=== PATIENT | female | born 1950 | race Caucasian/White ===

== ENCOUNTER → 2016-07-08 | Outpatient (CLI) | payer BC ==
[~2016-07-08] MED LIST: ALBU1.25 IH; ALLO100T PO; AMLO10TA2 PO; BUDE10.2 IH; CHLO25TA22 PO; ESCI20TA45 PO; GABA-488 PO; HYDR-3812 PO; INSU100I10 SQ; INSU100V6 SQ; LOSA50TA36 PO; MELO7.5T46 PO; METF1000 PO; POTA10CA43 PO; SIMV10TA3 PO; TRAM50TA2 PO
--- NOTE | 2016-07-08 13:24 | Diagnostic Imaging Report ---
EXAMINATION: Right breast diagnostic mammogram with a Computer Aided Detection (CAD) system. INDICATION: Calcifications were seen on mammography in the upper outer aspect of the right breast on the 04/11/2016 exam performed at an outside facility with question of architectural distortion in the retroareolar region on the right MLO view. COMPARISON: 04/11/2016 and other prior exams. FINDINGS: The right breast parenchyma is composed of slightly dense fibroglandular tissue in the retroareolar region with scattered fibroglandular tissue elsewhere. There are benign-appearing calcifications seen in the upper outer aspect including vascular calcifications. In the MLO projection, a compression view demonstrates no underlying lesion. IMPRESSION: The new calcifications described on the prior report and the questioned architectural distortion in the retroareolar area were investigated with focal compression views in the areas of interest demonstrating no suspicious cluster of calcifications or underlying lesion. The ultrasound evaluation is pending. ACR BI-RADS Category 0: Incomplete. (Needs additional imaging evaluation). Result letter will be mailed to the patient. Note: At least 10% of breast cancer is not imaged by mammography. Dictated by: Dictated on workstation # [id number]
--- NOTE | 2016-07-08 13:50 | Diagnostic Imaging Report ---
EXAMINATION: Right breast ultrasound INDICATION: Calcifications and question of architectural distortion in the right breast retroareolar and upper outer quadrant. FINDINGS: The four-quadrant of retroareolar region of the right breast are scanned with no underlying abnormality seen. IMPRESSION: Negative study. The calcifications seen on mammogram is likely benign. A 6 month followup mammogram is recommended to ensure stability. BI-RADS 3. ACR BI-RADS Category 3: Probably benign findings. Dictated by: Dictated on workstation # [id number]
== END ==
LOC: RAD 12:27
PROVIDERS: ATTEND Physician Assistant Medical
DX: R92.8 Other abnormal and inconclusive findings on diagnostic imaging of breast (principal); Z80.3 Family history of malignant neoplasm of breast
CPT/HCPCS: 76641

== ENCOUNTER 2018-05-07 05:38 | Outpatient (CLI) | payer BC, MEDICARE ==
[~2018-05-07] VITALS: Ht 171.4 cm; Wt 104.1 kg
[~2018-05-07 05:38] MED LIST changes: +ACHD5005 PO; -AMLO10TA2 PO; +AMLO10TA7 PO; -HYDR-3812 PO; -LOSA50TA36 PO; +LOSA50TA63 PO; +METF-399 PO; -METF1000 PO
== END 2018-05-07 10:13 ==
LOC: PREOP 05:38
PROVIDERS: ATTEND Surgery
DX: Z01.818 Encounter for other preprocedural examination (principal)

== ENCOUNTER 2018-05-11 08:38 | Day surgery (SDC) | payer MEDICARE, OTHER ==
[~2018-05-11] VITALS: Ht 171.4 cm; Wt 104.1 kg
--- OUTSIDE RECORDS SUMMARY | 2018-05-11 08:42 | XMS REPORT ---
Author Author TIP RIVERA Organization [employer] Address Unknown Phone Unavailable Care Team Providers Care Business Travel Consultant Name Role Phone TIP RIVERA CP Unavailable Allergies No Known Allergies Problems Problem Type Condition Code Onset Dates Condition Status Problem Emphysema of lung 492.8 Active Problem Lumbago 724.2 Active Problem DM (diabetes mellitus), type 2, uncontrolled 250.02 Active Problem Essential hypertension, benign 401.1 Active Problem Asthma, unspecified, unspecified status 493.90 Active Medications No Known Medications Results No Known Results Summary Purpose [employer] Submission
--- OUTSIDE RECORDS SUMMARY | 2018-05-11 08:42 | XMS REPORT ---
Author Author TIP RIVERA Organization [employer] Address Unknown Phone Unavailable Care Team Providers Care Superintendent Sanitation Name Role Phone TIP RIVERA CP Unavailable Allergies No Known Allergies Problems Problem Type Condition Code Onset Dates Condition Status Problem Emphysema of lung 492.8 Active Problem Lumbago 724.2 Active Problem DM (diabetes mellitus), type 2, uncontrolled 250.02 Active Problem Essential hypertension, benign 401.1 Active Problem Asthma, unspecified, unspecified status 493.90 Active Medications Medication Code System Code Instructions Start Date End Date Status Dosage Test strips NDC 0 Test Strips 2 times a day August 09, 2014 as directed Results No Known Results Summary Purpose [employer] Submission
[2018-05-11] MEDS ORDERED: NS IV 500 ML 500 ML IV PRN (08:48)
[2018-05-11] MEDS ORDERED: NS IV 500 ML 500 ML ONE (08:50)
[2018-05-11] MEDS ORDERED: fentaNYL INJECTION 100 MCG/2 ML AMP IVP ONE (09:00)
[2018-05-11] MEDS ORDERED: MIDAZOLAM 2 MG/2 ML (VERSED) VIAL IVP ONE (09:00)
[2018-05-11 09:19] VITALS: BP 155/88
--- NOTE | 2018-05-11 10:14 | History & Physicial ---
History of Present Illness History of Present Illness Reason for visit/HPI for surveillance colonoscopy. 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 Date of Admission 05/11/18 Date Seen by a Provider: May 11, 2018 Time Seen by a Provider: 10:12 I consulted on this patient on 05/11/18 10:10 Attending Physician Nila Christianson MD Admitting Physician Andrade Shaw MD Consult Allergies and Home Medications Allergies Coded Allergies: Penicillins (Verified Allergy, Mild, RASH, 05/07/18) Home Medications Albuterol Sulfate 1.25 Mg/3 Ml Vial.neb, 1.25 MG IH Q8H PRN for SHORTNESS OF BREATH, (Reported) Allopurinol 100 Mg Tablet, 100 MG PO DAILY, (Reported) Amlodipine Besylate 10 Mg Tablet, 10 MG PO DAILY, (Reported) Budesonide/Formoterol Fumarate 10.2 Gm Hfa.aer.ad, 2 PUFF IH BID PRN for SHORTNESS OF BREATH, (Reported) Escitalopram Oxalate 20 Mg Tablet, 20 MG PO DAILY, (Reported) Gabapentin 300 Mg Capsule, 300 MG PO TID, (Reported) Insulin Glargine,Hum.rec.anlog 100 Unit/1 Ml Insuln.pen, 10 UNITS SQ DAILY@1800, (Reported) Losartan Potassium 50 Mg Tablet, 50 MG PO DAILY, (Reported) Metformin HCl 1,000 Mg Tablet, 1,000 MG PO BID, (Reported) LAST FILLED 11/22/15 #60 Potassium Chloride 10 Meq Capsule.er, 10 MEQ PO BID, (Reported) Simvastatin 10 Mg Tablet, 10 MG PO HS, (Reported) Patient Home Medication List Home Medication List Reviewed: Yes Past Hrlyagp-Vjmaop-Iotqgk Hx Patient Social History Marrital Status: single Employed/Student: retired Alcohol Use: Denies Use Recreational Drug Use: No Former Smoker, Quit: Jan 10, 2006 Type Used: Cigarettes 2nd Hand Smoke Exposure: Yes Recent Foreign Travel: No Contact w/other who traveled: No Recent Hopitalizations: No Immunizations Up To Date Tetanus Booster (TDap): Unknown Date of Pneumonia Vaccine: Mar 24, 2017 Date of Influenza Vaccine: Dec 22, 2017 Seasonal Allergies Seasonal Allergies: Yes Surgeries Yes (POLYPS, HIATAL HERNIA REPAIR, R TKR, COLECTOMY) Appendectomy Respiratory Yes Cardiovascular Yes High Cholesterol, Hypertension Neurological Yes Neuropathy Reproductive System Hx Reproductive Disorders: No Sexually Transmitted Disease: No HIV/AIDS: No Genitourinary No Gastrointestinal Yes Gastroesophageal Reflux, Chronic Constipation, Chronic Diarrhea, Polyps Musculoskeletal Yes Degenerate Disk Disease, Arthritis, Chronic Back Pain Endocrine History of Endocrine Disorders: Yes Endocrine Disorders: Diabetes, Insulin dep HEENT History of HEENT Disorders: Yes (GLASSES, DENTURES) Loss of Vision: Bilateral Hearing Impairment: Denies Cancer Yes Colon Did You Recieve Any Treatments: Yes Type of Treatment: Surgical Intervention Psychosocial History of Psychiatric Problem: Yes Behavioral Health Disorders: Depression Integumentary History of Skin or Integumenta: No Blood Transfusions History of Blood Disorders: No Adverse Reaction to a Blood Tr: No (N/A) Family Medical History Family Hx: BONE CANCER 19 FATHER BRAIN ANEURYSM 19 MOTHER Review of Systems Constitutional: no symptoms reported EENTM: no symptoms reported Respiratory: no symptoms reported Cardiovascular: no symptoms reported Gastrointestinal: diarrhea Genitourinary: no symptoms reported Musculoskeletal: no symptoms reported Skin: no symptoms reported Psychiatric/Neurological: No Symptoms Reported Physical Exam Vital Signs Vital Signs - First Documented 05/11/18 09:19 Temp 99.5 Pulse 85 Resp 20 B/P (MAP) 155/88 (110) Pulse Ox 94 O2 Delivery Room Air Capillary Refill : Height, Weight, BMI Height: 5'7.50" Weight: 229lbs. 8.0oz. 104.330687pp; 35.4 BMI Method: General Appearance: No Apparent Distress Neck: Normal Inspection Respiratory: Lungs Clear Cardiovascular: Regular Rate, Rhythm Gastrointestinal: Non Tender, Soft Rectal: Deferred Neurologic/Psychiatric: Alert, Oriented x3 Skin: Warm/Dry Assessment/Plan Assessment and Plan lady with a large polyp of the right colon with high-grade dysplasia, previous right colon resection. For surveillance colonoscopy Admission Diagnosis Admission Status: Other (Outpt Proc) NILA CHRISTIANSON MD May 11, 2018 10:14
--- NOTE | 2018-05-11 10:14 | Conscious Sedation/ASA ---
Conscious Sedation Pre-Proced Time 10:14 ASA Score 2 For ASA 3 and 4: Consider anesthesia and medical clearance. Also, for patients with a history of failed moderate sedation consider anesthesia. Airway Lungs Heart ASA score ASA 1: a normal healthy patient ASA 2: a patient with a mild systemic disease (mid diabetes, controlled hypertension, obesity ASA 3: a patient with a severe systemic disease that limits activity (angina , COPD, prior Myocardial infarction) ASA 4: a patient with an incapacitating disease that is a constant threat to life (CHF, renal failure) ASA 5: a moribund patient not expected to survive 24 hrs. (ruptured aneurysm) ASA 6: a declared brain- patient whose organs are being harvested. For emergent operations, add the letter E after the classification Mallampati Classification Grade 1 Sedation Plan Discussed options with patient/fam The patient is an appropriate candidate to undergo the planned procedure, sedation, and anesthesia. The patient immediately re-assessed prior to indication. NILA CHRISTIANSON MD May 11, 2018 10:14
[2018-05-11] MEDS ORDERED: fentaNYL INJECTION 100 MCG/2 ML AMP ONE (10:22)
[2018-05-11] MEDS ORDERED: MIDAZOLAM 2 MG/2 ML (VERSED) VIAL ONE ×3 (10:23)
--- NOTE | 2018-05-11 10:59 | Endo Procedure Record ---
Endo Procedure Report Date of Procedure Last Colonoscopy: Yes (2016) May 11, 2018 Surgeon (s) NILA CHRISTIANSON MD Post Procedure/Op Diagnosis normal colonoscopy Procedure Performed colonoscopy to ileocolic anastomosis Description of Procedure Anesthesia Type: Conscious Sedation Specimen(s) collected/removed None Description of the Procedure Indication for the procedure: This lady had undergone right hemicolectomy using robotic assistance to address a serrated adenoma of the right colon with high- grade dysplasia. She came in for surveillance colonoscopy. Informed consent was obtained after reviewing the procedure in detail. Description of the procedure: She was placed in left lateral decubitus position and her vital signs were monitored. Conscious sedation was achieved using Versed and fentanyl. Digital rectal examination was unremarkable. The colonoscope was then introduced in the rectum and advanced to the ileocolic anastomosis. It was then withdrawn slowly and the mucosa examined in a systematic fashion. There was no abnormality. She tolerated the procedure well and was taken to the recovery room in a stable condition. Impression: Previous serrated adenoma of the right colon with high-grade dysplasia. No recurrence. Recommend repeating colonoscopy in 3 years. NILA CHRISTIANSON MD May 11, 2018 10:59
[2018-05-11 11:00] VITALS: BP 135/57
--- NOTE | 2018-05-11 11:04 | Discharge Inst-Simple/Standard ---
Discharge Inst-Standard Discharge Medications New, Converted or Re-Newed RX: Other Patient Instructions/Follow Up Plan of Care/Instructions/FU: repeat colonoscopy in 3 years. To use jeic-bpy-qpobwbu antidiarrheals Activity as Tolerated: Yes Discharge Diet: No Restrictions NILA CHRISTIANSON MD May 11, 2018 11:04
[2018-05-11 11:30] VITALS: BP 138/68
[2018-05-11 11:50] VITALS: BP 138/68
== END 2018-05-11 11:50 | disposition home or self-care (01) ==
LOC: ENDO 08:38
PROVIDERS: ATTEND Surgery
DX: Z12.11 Encounter for screening for malignant neoplasm of colon (principal); Z86.010 Personal history of colon polyps; Z88.0 Allergy status to penicillin; Z79.899 Other long term (current) drug therapy; Z79.4 Long term (current) use of insulin; Z87.891 Personal history of nicotine dependence; I10 Essential (primary) hypertension; E78.00 Pure hypercholesterolemia, unspecified; E11.40 Type 2 diabetes mellitus with diabetic neuropathy, unspecified; K21.9 Gastro-esophageal reflux disease without esophagitis; K59.09 Other constipation; K52.9 Noninfective gastroenteritis and colitis, unspecified; M19.91 Primary osteoarthritis, unspecified site

== ENCOUNTER → 2020-08-08 | Outpatient (CLI) | payer MEDICARE, OTHER ==
[~2020-08-08] MED LIST changes: +AMLO-251 PO; -AMLO10TA7 PO; +ESCI20TA39 PO; -ESCI20TA45 PO; +SIMV10TA26 PO; -SIMV10TA3 PO; -TRAM50TA2 PO; +TRM50T PO
--- NOTE | 2020-08-08 13:00 | Diagnostic Imaging Report ---
INDICATION: Routine screening. Comparison is made with prior mammogram 04/11/2016 and 09/19/2009. 2-D and 3-D bilateral screening mammography was performed with CAD. Scattered fibroglandular densities are identified bilaterally. The overall parenchymal pattern appears to be stable. There are benign parenchymal and vascular calcifications. No mass or malignant appearing microcalcifications are seen. Axillae are unremarkable. IMPRESSION: BI-RADS Category 2 No mammographic features suspicious for malignancy are identified. Dictated by: Dictated on workstation # [id number]
== END ==
LOC: RAD 11:15
PROVIDERS: ATTEND Nurse Practitioner Community Health
DX: Z12.31 Encounter for screening mammogram for malignant neoplasm of breast (principal)
CPT/HCPCS: 77063; 77067

== ENCOUNTER 2020-09-19 06:36 | Outpatient (CLI) | payer MEDICARE ==
[~2020-09-19] VITALS: Ht 170.2 cm; Wt 107.2 kg
[2020-09-19] MEDS ORDERED: HYDR12.56 PO (11:40)
[2020-09-19] MEDS ORDERED: POLY17PO54 PO (11:40)
[2020-09-19] MEDS ORDERED: FLUT1BLS3 IH (11:40)
[2020-09-19] MEDS ORDERED: FURO20TA4 PO (11:40)
[2020-09-19] MEDS ORDERED: NAPR500T8 PO (11:40)
[2020-09-19] MEDS ORDERED: OMEP40CA6 PO (11:40)
[2020-09-19] MEDS ORDERED: INSU100I14 SQ (11:40)
[2020-09-19] MEDS ORDERED: SEMA0.25 SQ (11:40)
[2020-09-19] MEDS ORDERED: ARIP10TA55 PO (11:40)
[2020-09-19] MEDS ORDERED: IPRA3AMP31 IH (11:40)
[2020-09-19] MEDS ORDERED: FLUC100T6 PO (11:40)
[2020-09-19] MEDS ORDERED: QUET200T29 PO (11:40)
[2020-09-19] MEDS ORDERED: CYCL5TAB PO (11:40)
[2020-09-19] MEDS ORDERED: DULO60CA59 PO (11:40)
[2020-09-19] MEDS ORDERED: BUSP5TAB59 PO (11:40)
[2020-09-19] MEDS ORDERED: OXYB-52 PO (11:40)
[2020-09-19] MEDS ORDERED: NITR100C10 PO (11:40)
[2020-09-19] MEDS ORDERED: DAPA5TAB PO (11:40)
== END 2020-09-19 14:07 | disposition home or self-care (01) ==
LOC: PREOP 06:36
PROVIDERS: ATTEND Surgery
DX: Z01.818 Encounter for other preprocedural examination (principal)

== ENCOUNTER 2020-09-26 07:00 | Day surgery (SDC) | payer MEDICARE, MEDICAID ==
[~2020-09-26] VITALS: Ht 170.2 cm; Wt 107.2 kg
[~2020-09-26 07:00] MED LIST changes: +ARIP10TA55 PO; +BUSP5TAB59 PO; +CYCL5TAB PO; +DAPA5TAB PO; +DULO60CA59 PO; +FLUC100T6 PO; +FLUT1BLS3 IH; +FURO20TA4 PO; +HYDR12.56 PO; +INSU100I14 SQ; +IPRA3AMP31 IH; +NAPR500T8 PO; +NITR100C10 PO; +OMEP40CA6 PO; +OXYB-52 PO; +POLY17PO54 PO; +QUET200T29 PO; +SEMA0.25 SQ
[2020-09-26] MEDS ORDERED: LACTATED RINGERS 1,000 ML IV STA (07:11)
[2020-09-26] MEDS ORDERED: LACTATED RINGERS 1,000 ML IV ONE (07:14)
[2020-09-26 07:25] VITALS: BP 140/94
[2020-09-26] MEDS ORDERED: RT-ALBUTEROL SULF 2.5 MG/3 ML PRE-MIX VIAL INH ONE (07:45)
[2020-09-26] MEDS ORDERED: PROPOFOL INJECTION 50 ML IV ONE ×2 (07:46→09:50)
[2020-09-26 10:45] VITALS: BP 130/73
[2020-09-26 10:50] VITALS: BP_SYST 128; BP_SYST 143; BP_DIAS 73; BP_DIAS 76
--- NOTE | 2020-09-26 10:55 | Anesthesia-General Post-Op ---
MAC Patient Condition Mental Status/LOC: Same as Preop Cardiovascular: Satisfactory Nausea/Vomiting: Absent Respiratory: Satisfactory Pain: Controlled Complications: Absent Post Op Complications Complications None Follow Up Care/Instructions Patient Instructions None needed. Anesthesiology Discharge Order Discharge Order Patient is doing well, no complaints, stable vital signs, no apparent adverse anesthesia problems. No complications reported per nursing. MARKUS TERRY CRNA Sep 26, 2020 10:55
--- NOTE | 2020-09-26 11:02 | Progress Note-Post Operative ---
Post-Operative Progess Note Surgeon (s)/Order Runner (s) Surgeon YORDAN MORRISSEY DO Order Runner: na Pre-Operative Diagnosis hx colon cancer Post-Operative Diagnosis ileocolonic mass, colon polyps Procedure & Operative Findings Date of Procedure 09/26/20 Procedure Performed/Findings colonoscopy c cold biopsies of ileocolonic mass, madhav inked, hot bx p olypectomy x 3 Anesthesia Type per insecticide supervisor Estimated Blood Loss Estimated blood loss (mL): scant Specimens/Packing Specimens Removed iloeocolonic mass, colon polyps YORDAN MORRISSEY DO Sep 26, 2020 11:02
--- NOTE | 2020-09-26 11:02 | Discharge Inst-Simple/Standard ---
Discharge Inst-Standard Patient Instructions/Follow Up Plan of Care/Instructions/FU: 2 weeks Leonela Activity as Tolerated: Yes Discharge Diet: Regular Diet YORDAN MORRISSEY DO Sep 26, 2020 11:02
[2020-09-26 11:15] VITALS: BP 116/86
[2020-09-26 11:16] VITALS: BP 116/86
--- NOTE | 2020-09-26 15:20 | OPERATIVE REPORT ---
DATE OF SERVICE: 09/26/2020 PREOPERATIVE DIAGNOSIS: History of colon cancer. POSTOPERATIVE DIAGNOSES: Ileocolonic masses and colon polyps. PROCEDURES PERFORMED: Colonoscopy with cold biopsies of ileocolic mass with Swati inking just distal to this area and hot biopsy polypectomy x3. SURGEON: Yordan Gipson DO. ANESTHESIA: Per EMPLOYMENT CLERK. ESTIMATED BLOOD LOSS: Scant. COMPLICATIONS: None. INDICATIONS FOR PROCEDURE: The patient is a 70-year-old female with a previous right colon resection for colon cancer. She understands risks and benefits of the procedure and wished to proceed with procedure. Consent was signed in the chart. DESCRIPTION OF PROCEDURE: The patient was taken to the endoscopy suite and placed in a left lateral recumbent position. Timeout was performed. Digital rectal exam was performed. There were no palpable polyps, masses or ulcerations. Scope was inserted in the rectum and advanced all the way to the ileocolonic anastomosis. Just distal to the ileocolonic anastomosis, there appears to be a slight diverticulum with a mass present within this area. Multiple cold biopsies were obtained of this area. Just distal to this area, a 3 mL of Swati ink were injected one in three locations for marking. Scope was then continuously retracted back. At the splenic flexure, there were two polyps, which hot biopsy polypectomies were performed. Scope was then continuously retracted back and another small polyp in the sigmoid colon was present, which hot biopsy polypectomy was performed. Scope was then continuously retracted back into the rectum, where it was also retroflexed noting no other pathology. Scope was returned to its normal position, slowly withdrawn until completely removed. The patient tolerated the procedure well without any complications. She was taken to recovery room in stable condition. RECOMMENDATIONS: The patient will follow up on pathology in two weeks. We will consider doing an ileocolonic resection and reanastomosis. Further recommendations are pending. Job ID: [id number] DocumentID: [id number] Dictated Date: 09/26/2020 11:05:43 Desk Monitor Date: 09/26/2020 15:19:59 Dictated By: YORDAN GIPSON DO
== END 2020-09-26 11:18 | disposition home or self-care (01) ==
LOC: ENDO 07:00
PROVIDERS: ATTEND Surgery
DX: Z12.11 Encounter for screening for malignant neoplasm of colon (principal); D12.2 Benign neoplasm of ascending colon; D12.3 Benign neoplasm of transverse colon; I10 Essential (primary) hypertension; K21.9 Gastro-esophageal reflux disease without esophagitis; E66.9 Obesity, unspecified; F32.9 Major depressive disorder, single episode, unspecified; F41.9 Anxiety disorder, unspecified; E11.40 Type 2 diabetes mellitus with diabetic neuropathy, unspecified; E78.00 Pure hypercholesterolemia, unspecified; E78.5 Hyperlipidemia, unspecified; J43.9 Emphysema, unspecified; G89.29 Other chronic pain; Z79.02 Long term (current) use of antithrombotics/antiplatelets; Z85.038 Personal history of other malignant neoplasm of large intestine; Z79.899 Other long term (current) drug therapy; Z79.82 Long term (current) use of aspirin; Z87.891 Personal history of nicotine dependence; Z68.37 Body mass index [BMI] 37.0-37.9, adult; Z90.49 Acquired absence of other specified parts of digestive tract; Z79.1 Long term (current) use of non-steroidal anti-inflammatories (NSAID); Z79.4 Long term (current) use of insulin; Z86.010 Personal history of colon polyps
CPT/HCPCS: 82947; 94640

== ENCOUNTER 2020-10-04 11:30 | Day surgery (SDC) | payer MEDICARE, MEDICAID ==
[~2020-10-04] VITALS: Ht 170 cm; Wt 107.0 kg
--- NOTE | 2020-10-04 11:46 | ED GI ---
General Chief Complaint: Rect Problems Stated Complaint: BLOODY STOOLS Source of Information: Patient Exam Limitations: No Limitations History of Present Illness Date Seen by Provider: Oct 04, 2020 Time Seen by Provider: 11:32 Initial Comments Patient to the ER by EMS from home with chief complaint of 12 hours of black tarry stools lightheadedness and low blood pressure on her home cuff. EMS reports 78/50 on their initial blood pressure. They started a 500 bag of saline. Patient had a colonoscopy a week ago and had a couple polyps removed. She has a history of colon cancer. Black tarry stools did not start till about 12 hours ago. Allergies and Home Medications Allergies Coded Allergies: Penicillins (Verified Allergy, Mild, RASH, 05/07/18) Home Medications Albuterol Sulfate 2.5 Mg/3 Ml Vial.neb, 2.5 ML NEB TID, (Reported) Last Action: Reviewed Allopurinol 100 Mg Tablet, 100 MG PO DAILY, (Reported) Last Action: Reviewed Amlodipine Besylate 10 Mg Tablet, 10 MG PO DAILY, (Reported) Last Action: Reviewed Ascorbate Calcium 500 Mg Tablet, 500 MG PO DAILY, (Reported) Last Action: Reviewed Aspirin 81 Mg Tablet.dr, 81 MG PO DAILY, (Reported) Last Action: Reviewed Atorvastatin Calcium 40 Mg Tablet, 40 MG PO HS, (Reported) Last Action: Reviewed Buspirone HCl 5 Mg Tablet, 5 MG PO TID, (Reported) Last Action: Reviewed Cyclobenzaprine HCl 5 Mg Tablet, 5 MG PO TID PRN for MUSCLE SPASMS, (Reported) Last Action: Reviewed Dapagliflozin Propanediol 5 Mg Tablet, 5 MG PO DAILY, (Reported) Last Action: Reviewed Diclofenac Sodium 100 Gm Gel..gram., 1 APPLIC TOP BID PRN for PAIN-BREAKTHROUGH, (Reported) Last Action: Reviewed Duloxetine HCl 30 Mg Capsule.dr, 60 MG PO DAILY, (Reported) TAKES 2 (30MG) CAPS Last Action: Reviewed Gabapentin 300 Mg Capsule, 600 MG PO TID, (Reported) TAKES 2 (300MG) CAPS Last Action: Reviewed Hydrochlorothiazide 12.5 Mg Tablet, 12.5 MG PO DAILY, (Reported) Last Action: Reviewed Insulin Glargine,Hum.rec.anlog 100 Unit/1 Ml Insuln.pen, 10 UNITS SQ HS, (Reported) Last Action: Reviewed Losartan Potassium 50 Mg Tablet, 50 MG PO DAILY, (Reported) Last Action: Reviewed Metformin HCl 1,000 Mg Tablet, 1,000 MG PO BID, (Reported) Last Action: Reviewed Methyl Salicylate/Menthol 1 Each Adh..patch, 1 EACH TP BID, (Reported) Last Action: Reviewed Naproxen 500 Mg Tablet, 500 MG PO DAILY PRN for PAIN-MILD (1-4), (Reported) Last Action: Reviewed Omeprazole 40 Mg Capsule.dr, 40 MG PO DAILY, (Reported) Last Action: Reviewed Oxybutynin Chloride 5 Mg Tab.er.24, 5 MG PO DAILY, (Reported) Last Action: Reviewed Polyethylene Glycol 3350 17 Gm Powd.pack, 17 GM PO DAILY, (Reported) Last Action: Reviewed Polyethylene Glycol 400 15 Ml Drops, 2 DROPS OU QID PRN for DRY EYES, (Reported) Last Action: Reviewed Potassium Chloride 10 Meq Capsule.er, 10 MEQ PO BID, (Reported) Last Action: Reviewed Quetiapine Fumarate 100 Mg Tablet, 100 MG PO HS, (Reported) Last Action: Reviewed Semaglutide 1 Mg/0.75 Ml Pen.injctr, 1 MG INJ FRI, (Reported) Last Action: Reviewed Sennosides 8.6 Mg Tablet, 17.2 MG PO HS PRN for CONSTIPATION-5TH LINE, (Reported) TAKES 2 (8.6MG) TABS Last Action: Reviewed Trazodone HCl 50 Mg Tablet, 50 MG PO HS, (Reported) Last Action: Reviewed Patient Home Medication List Home Medication List Reviewed: Yes Review of Systems Review of Systems Constitutional: No chills, No diaphoresis EENTM: No Blurred Vision, No Double Vision Respiratory: Denies Cough, Denies Orthopnea Gastrointestinal: Denies Abdominal Pain, Denies Constipated, Denies Diarrhea Genitourinary: Denies Burning, Denies Discharge Musculoskeletal: No back pain, No joint pain Psychiatric/Neurological: Denies Headache, Denies Numbness All Other Systems Reviewed Negative Unless Noted: Yes Past Dtldmjz-Tdwrhz-Dhdibn Hx Patient Social History Tobacco Use?: No Use of E-Cig and/or Vaping dev: No Substance use?: No Immunizations Up To Date Tetanus Booster (TDap): Unknown Seasonal Allergies Seasonal Allergies: Yes Past Medical History Surgeries: Yes (POLYPS, HIATAL HERNIA REPAIR, R TKR, COLECTOMY) Appendectomy Respiratory: Yes COPD, Emphysema Cardiac: Yes High Cholesterol, Hypertension Neurological: Yes Neuropathy Reproductive Disorders: No Sexually Transmitted Disease: No HIV/AIDS: No Genitourinary: No Gastrointestinal: Yes Gastroesophageal Reflux, Chronic Constipation, Chronic Diarrhea, Polyps Musculoskeletal: Yes Degenerate Disk Disease, Arthritis, Chronic Back Pain Endocrine: Yes Diabetes, Insulin dep HEENT: Yes (GLASSES, DENTURES) Loss of Vision: Bilateral Hearing Impairment: Denies Cancer: Yes Colon Did You Recieve Any Treatments: Yes What Type of Treatment Did You: Surgical Intervention Psychosocial: Yes Anxiety, Depression Integumentary: No Blood Disorders: No Adverse Reaction/Blood Tranf: No (N/A) Family Medical History BONE CANCER 19 FATHER BRAIN ANEURYSM 19 MOTHER Physical Exam Vital Signs Vital Signs - First Documented 10/04/20 11:39 Temp 36.9 Pulse 93 Resp 18 B/P (MAP) 80/53 (62) Pulse Ox 97 Capillary Refill : Height/Weight/BMI Height: 5'7.50" Weight: 229lbs. 8.0oz. [id number]; 37.00 BMI Method: General Appearance: WD/WN, moderate distress HEENT: PERRL/EOMI, pharynx normal Neck: full range of motion, normal inspection Respiratory: lungs clear, normal breath sounds, no respiratory distress, no accessory muscle use Cardiovascular: normal peripheral pulses, regular rate, rhythm Gastrointestinal: normal bowel sounds, non tender, soft Neurologic/Psychiatric: alert, normal mood/affect, oriented x 3 Skin: normal color, warm/dry Progress/Results/Core Measures Results/Orders Lab Results Laboratory Tests Test 10/04/20 11:40 Range/Units White Blood Count 15.2 H 4.3-11.0 10^3/uL Red Blood Count 3.55 L 3.80-5.11 10^6/uL Hemoglobin 11.1 L 11.5-16.0 g/dL Hematocrit 35 35-52 % Mean Corpuscular Volume 99 80-99 fL Mean Corpuscular Hemoglobin 31 25-34 pg Mean Corpuscular Hemoglobin Concent 31 L 32-36 g/dL Red Cell Distribution Width 13.3 10.0-14.5 % Platelet Count 300 130-400 10^3/uL Mean Platelet Volume 10.8 9.0-12.2 fL Immature Granulocyte % (Auto) 2 % Neutrophils (%) (Auto) 74 42-75 % Lymphocytes (%) (Auto) 19 12-44 % Monocytes (%) (Auto) 3 0-12 % Eosinophils (%) (Auto) 1 0-10 % Basophils (%) (Auto) 1 0-10 % Neutrophils # (Auto) 11.2 H 1.8-7.8 10^3/uL Lymphocytes # (Auto) 3.0 1.0-4.0 10^3/uL Monocytes # (Auto) 0.5 0.0-1.0 10^3/uL Eosinophils # (Auto) 0.2 0.0-0.3 10^3/uL Basophils # (Auto) 0.2 H 0.0-0.1 10^3/uL Immature Granulocyte # (Auto) 0.3 H 0.0-0.1 10^3/uL Neutrophils % (Manual) 77 % Lymphocytes % (Manual) 20 % Monocytes % (Manual) 1 % Eosinophils % (Manual) 1 % Basophils % (Manual) 0 % Band Neutrophils 1 % Blood Morphology Comment NORMAL Sodium Level 141 135-145 MMOL/L Potassium Level 4.3 3.6-5.0 MMOL/L Chloride Level 103 98-107 MMOL/L Carbon Dioxide Level 22 21-32 MMOL/L Anion Gap 16 H 5-14 MMOL/L Blood Urea Nitrogen 17 7-18 MG/DL Creatinine 0.77 0.60-1.30 MG/DL Estimat Glomerular Filtration Rate > 60 BUN/Creatinine Ratio 22 Glucose Level 176 H 70-105 MG/DL Calcium Level 8.4 L 8.5-10.1 MG/DL Corrected Calcium 8.6 8.5-10.1 MG/DL Total Bilirubin 0.5 0.1-1.0 MG/DL Aspartate Amino Transf (AST/SGOT) 28 5-34 U/L Alanine Aminotransferase (ALT/SGPT) 38 0-55 U/L Alkaline Phosphatase 67 40-136 U/L C-Reactive Protein High Sensitivity 0.87 H 0.00-0.50 MG/DL Total Protein 6.3 L 6.4-8.2 GM/DL Albumin 3.7 3.2-4.5 GM/DL My Orders Orders - ADE COREA Abdomen/Kub 1view (10/04/20 11:42) Type And Screen (10/04/20 11:42) Cbc With Automated Diff (10/04/20 11:42) Comprehensive Metabolic Panel (10/04/20 11:42) Hs C Reactive Protein (10/04/20 11:42) Occult Blood Stool (10/04/20 11:43) Vital Signs: Special (Order) (10/04/20 11:46) Consent-Obtain Consent For (10/04/20 11:46) Monitor S/S Transfusion Reacti (10/04/20 11:46) Ns Iv 500 Ml (Sodium Chloride 0.9%) (10/04/20 12:00) Red Cells Leukocytes Reduced (10/04/20 11:46) Tranexamic Acid Injection (Cyklokapron I (10/04/20 12:00) Ns (Ivpb) (Sodium C... W/Tranexamic Acid (10/04/20 12:00) Pantoprazole Injection (Protonix Injecti (10/04/20 12:00) Manual Differential (10/04/20 11:40) Ns Iv 1000 Ml (Sodium Chloride 0.9%) (10/04/20 12:30) Medications Given in ED Current Medications Medications Dose Ordered Sig/Parmjit Route Start Time Stop Time Status Last Admin Dose Admin Pantoprazole 40 mg ONCE ONCE IV 10/04/20 12:00 10/04/20 12:01 DC 10/04/20 12:40 40 MG Vital Signs/I&O 10/04/20 11:39 Temp 36.9 Pulse 93 Resp 18 B/P (MAP) 80/53 (62) Pulse Ox 97 Progress Progress Note : Time: 12:45 Progress Note Positive fecal occult. Hemoglobin is 11. Her blood pressure has leveled off with some fluids and Trendelenburg. 109/68. We will talk to her about putting a central line in and sending her to the stepdown unit for observation. Holding the blood and the TXA. Diagnostic Imaging Diagonstic Imaging: Xray Plain Films/CT/US/NM/MRI: abdomen, pelvis Comments No apparent free air on KUB. Reviewed: Reviewed by Me Departure Communication (Admissions) Time/Spoke to Admitting Phy: 12:30 Discussed the case with Dr. Gipson and he agrees to observe the patient with consult to medicine. Fluids 125 an hour, H&H at 1800, Protonix drip. Discontinue TXA and hold 2 units. Time/Spoke to Consulting Phy: 12:[address] Ernst and she agrees to consult with Dr. Gipson Impression Primary Impression: GI bleed Qualified Codes: K92.2 - Gastrointestinal hemorrhage, unspecified Disposition: ADMITTED INPATIENT Condition: Stable Admissions Decision to Admit Reason: Admit from ER (General) Decision to Admit/Date: Oct 04, 2020 Time/Decision to Admit Time: 12:30 Departure-Patient Inst. Ref[facility]: [facility] [place] Primary Care Physician DEVYN ARANA (Family) Primary Care Physician ADE COREA Oct 04, 2020 11:46
[2020-10-04 11:51] LABS: BASOPHILS # (AUTO) 0.2 10^3/uL (0.0-0.1); BASOPHILS % (AUTO) 1 % (0-10); EOSINOPHILS # (AUTO) 0.2 10^3/uL (0.0-0.3); EOSINOPHILS % (AUTO) 1 % (0-10); HEMATOCRIT 35 % (35-52); HEMOGLOBIN 11.1 g/dL (11.5-16.0); LYMPHOCYTES % (AUTO) 19 % (12-44); MEAN CORPUSCULAR HEMOGLOBIN 31 pg (25-34); MEAN CORPUSCULAR HGB CONC 31 g/dL (32-36); MEAN CORPUSCULAR VOLUME 99 fL (80-99); MEAN PLATELET VOLUME 10.8 fL (9.0-12.2); MONOCYTES # (AUTO) 0.5 10^3/uL (0.0-1.0); MONOCYTES % (AUTO) 3 % (0-12); NEUTROPHILS # (AUTO) 11.2 10^3/uL (1.8-7.8); NEUTROPHILS % (AUTO) 74 % (42-75); PLATELET COUNT 300 10^3/uL (130-400); WHITE BLOOD COUNT 15.2 10^3/uL (4.3-11.0)
[2020-10-04 12:00] LABS: ALBUMIN 3.7 GM/DL (3.2-4.5); CHLORIDE 103 MMOL/L (98-107); POTASSIUM 4.3 MMOL/L (3.6-5.0); SODIUM 141 MMOL/L (135-145)
[2020-10-04] MEDS ORDERED: TRANEXAMIC ACID INJECTION 1,000 MG in NS (IVPB) 100 ML IV ONE (12:00)
[2020-10-04] MEDS ORDERED: TRANEXAMIC ACID INJECTION 1,000 MG in NS (IVPB) 250 ML IV SCH (12:00)
[2020-10-04] MEDS ORDERED: NS IV 500 ML 500 ML IV SCH (12:00)
[2020-10-04] MEDS ORDERED: PANTOPRAZOLE 40 MG (PROTONIX) VIAL IV ONE (12:00)
[2020-10-04 12:01] LABS: CALCIUM 8.4 MG/DL (8.5-10.1)
[2020-10-04 12:03] LABS: GLUCOSE 176 MG/DL (70-105); TOTAL PROTEIN 6.3 GM/DL (6.4-8.2)
[2020-10-04 12:04] LABS: CARBON DIOXIDE 22 MMOL/L (21-32)
[2020-10-04 12:05] LABS: BILIRUBIN,TOTAL 0.5 MG/DL (0.1-1.0)
[2020-10-04 12:06] LABS: ALKALINE PHOSPHATASE 67 U/L (40-136); CREATININE SERUM 0.77 MG/DL (0.60-1.30); GFR ESTIMATED > 60
[2020-10-04 12:07] LABS: BUN/CREATININE RATIO 22
[2020-10-04 12:09] LABS: ALANINE AMINOTRANSFERASE 38 U/L (0-55)
[2020-10-04] MEDS ORDERED: NS IV 1000 ML 1,000 ML IV SCH (12:30)
[2020-10-04 12:36] LABS: BAND NEUTROPHILS 1 %; BASOPHILS % (MANUAL) 0 %; EOSINOPHILS % (MANUAL) 1 %; LYMPHOCYTES % (MANUAL) 20 %; MONOCYTES % (MANUAL) 1 %; NEUTROPHILS % (MANUAL) 77 %; RBC MORPH NORMAL
--- NOTE | 2020-10-04 12:45 | Diagnostic Imaging Report ---
Indication: Rectal bleeding, anemia FINDINGS: The bowel gas pattern appeared normal. No pneumatosis or evidence for free air. Surgical opacities in the right upper quadrant curvilinear as well as nomi at the epigastrium and left upper quadrant present as well as the right hemipelvis. No bowel obstruction. Impression: No acute appearing abnormality. Dictated by: Dictated on workstation # [id number]
[2020-10-04] MEDS: LACTATED RINGERS 1,000 ML IV SCH ×2 (14:57→22:04)
[2020-10-04] MEDS ORDERED: fentaNYL INJ 100 MCG/2 ML AMP IV PRN (15:00)
[2020-10-04] MEDS ORDERED: CATHETER FLUSH 10 ML SYR IV PRN (15:00)
[2020-10-04] MEDS ORDERED: ONDANSETRON 4 MG/2 ML (SDV) Z0FRAN IV PRN (15:00)
[2020-10-04] MEDS ORDERED: NAPR-915 PO (15:01)
[2020-10-04] MEDS ORDERED: SENN8.6T17 PO (15:01)
[2020-10-04] MEDS ORDERED: DULO30CA49 PO (15:01)
[2020-10-04] MEDS ORDERED: SEMA1PEN INJ (15:01)
[2020-10-04] MEDS ORDERED: ASCO-262 PO (15:01)
[2020-10-04] MEDS ORDERED: QUET100T33 PO (15:01)
[2020-10-04] MEDS ORDERED: METH1ADH15 TP (15:01)
[2020-10-04] MEDS ORDERED: TRZ50T PO (15:01)
[2020-10-04] MEDS ORDERED: ATOR40TA70 PO (15:01)
[2020-10-04] MEDS ORDERED: ASPI-1238 PO (15:01)
[2020-10-04] MEDS ORDERED: ALBU2.5V4 NEB (15:01)
[2020-10-04] MEDS ORDERED: GABA300C PO (15:01)
[2020-10-04] MEDS ORDERED: DICL100G13 TOP (15:01)
[2020-10-04] MEDS ORDERED: [UNRECOGNIZED DRUG - CODE] OU (15:01)
--- NOTE | 2020-10-04 15:01 | Consultation - Hospitalist ---
HPI History of Present Illness: HPI/Chief Complaint CC: GI bleed HPI: This is a [facility] patient who presented to the ER with several days of dark stools and severe dizziness and syncopal episode. She was found to have Hgb of 11, but high suspicion for upper GI bleed. Dr. Gipson will maintain supportive care and perform EGD. I know her from prior hospital stays. She denies any other significant issues. Source: patient Exam Limitations: no limitations Date Seen 10/04/20 Attending Physician Cortes Gipson DO [facility] Referring Physician Date of Admission Oct 04, 2020 at 12:40 Home Medications & Allergies Home Medications Reviewed patient Home Medication Reconciliation performed by pharmacy medication reconciliations agricultural technician and/or nursing. Patients Allergies have been reviewed. Allergies Allergies Coded Allergies Penicillins (Verified Allergy, Mild, RASH, 05/07/18) Past Noueule-Korkfp-Jzjase Hx Patient Social History Marrital Status: single Employed/Student: retired Tobacco Use?: No Tobacco type used: Cigars Smoking Status: Former Smoker Smokeless Tobacco Frequency: Never a User Use of E-Cig and/or Vaping Tyrell: Never a User Substance use?: No Alcohol Use?: No Pt feels they are or have been: No Immunizations Up To Date Date of Influenza Vaccine: Dec 22, 2017 First/Initial COVID19 Vaccinat: 05/18/20 Second COVID19 Vaccination Tavon: 04/17/2019 Tetanus Booster (TDap): Unknown Date of Pneumonia Vaccine: Mar 24, 2017 Seasonal Allergies Seasonal Allergies: Yes Current Status Advance Directives: Yes Advance Directive Location: Copy from prev record Communicates: Verbally Primary Language: Yi Preferred Spoken Language: Yi Is interpretation needed?: No Sensory deficits: Vision impairment Past Medical History Surgeries: Appendectomy COPD, Emphysema High Cholesterol, Hypertension Neuropathy Sexually Transmitted Disease: No HIV/AIDS: No Gastroesophageal Reflux, Chronic Constipation, Chronic Diarrhea, Polyps Degenerate Disk Disease, Arthritis, Chronic Back Pain Diabetes, Insulin dep Loss of Vision: Bilateral Hearing Impairment: Denies Colon Did You Recieve Any Treatments: Yes What Type of Treatment Did You: Surgical Intervention Anxiety, Depression Blood Disorders: No Adverse Reaction/Blood Tranf: No (N/A) Family Medical History BONE CANCER 19 FATHER BRAIN ANEURYSM 19 MOTHER Review of Systems Constitutional: see HPI Gastrointestinal: melena Physical Exam Physical Exam Vital Signs Vital Signs - First Documented 10/04/20 10/04/20 10/04/20 11:39 14:30 16:00 Temp 36.9 Pulse 93 Resp 18 B/P (MAP) 80/53 (62) Pulse Ox 97 O2 Delivery Room Air O2 Flow Rate 1.00 Capillary Refill : Less Than 3 Seconds Height, Weight, BMI Height: 5'7.50" Weight: 229lbs. 8.0oz. 104.419087aw; 37.02 BMI Method: General Appearance: WD/WN, Anxious, Chronically ill, Mild Distress Eyes: Bilateral Eye Normal Inspection, Bilateral Eye PERRL HEENT: PERRL/EOMI, Normal ENT Inspection, Pharynx Normal Neck: Full Range of Motion, Normal Inspection, Non Tender, Supple, Carotid Bruit Respiratory: Chest Non Tender, Lungs Clear, Normal Breath Sounds, No Accessory Muscle Use, No Respiratory Distress Cardiovascular: Regular Rate, Rhythm, No Edema, No Gallop, No JVD, No Murmur, Normal Peripheral Pulses Gastrointestinal: Normal Bowel Sounds, No Organomegaly, No Pulsatile Mass, Non Tender, Soft Back: Normal Inspection, No CVA Tenderness, No Vertebral Tenderness Extremity: Normal Capillary Refill, Normal Inspection, Normal Range of Motion, Non Tender, No Calf Tenderness, No Pedal Edema Neurologic/Psychiatric: Alert, Oriented x3, No Motor/Sensory Deficits, Normal Mood/Affect Skin: Normal Color, Warm/Dry Lymphatic: No Adenopathy Results Results/Procedures Labs Laboratory Tests 10/04/20 11:40 10/04/20 17:50 10/04/20 23:50 10/05/20 04:45 Patient resulted labs reviewed. Assessment/Plan Assessment and Plan Assess & Plan/Chief Complaint Assessment: Upper GI bleed Acute blood loss anemia Diabetes Hypertension Hyperlipidemia Plan: Dr. Gipson for scope Monitor closely for transfusion Diagnosis/Problems Diagnosis/Problems (1) GI bleed Status: Acute Qualifiers: GI bleed type/associated pathology: unspecified gastrointestinal hemorrhage type Qualified Codes: K92.2 - Gastrointestinal hemorrhage, unspecified JESSICA SANTIAGO DO Oct 04, 2020 15:01
[2020-10-04] MEDS: PANTOPRAZOLE DRIP 200 MG/NS 100 ML IV SCH ×2 (15:05)
[2020-10-04 16:00] VITALS: BP 108/70
--- NOTE | 2020-10-04 16:54 | History & Physical-Surgical ---
History of Present Illness History of Present Illness Reason for visit/HPI Chief complaint: Blood in stool. Patient is a 70-year-old female who had colonoscopy last week which she had polyps removed and biopsy performed. Patient states that last night she began having some blood in the stool. She felt weak. She was having dark melodic blood in the stools. She was having a little bit of red she said as well. She was feeling little bit dizziness from time to time. Patient has continued and went to the emergency department for further evaluation. Patient in the emergency department was slightly hypotensive. She was given fluids. She started feeling better. Patient hemoglobin was 11 range. Patient denies any nausea vomiting fever sweats chills shortness of breath or chest pain. patient states she is been taking aspirin as well. Date of Admission Oct 04, 2020 at 12:40 Date Seen by a Provider: Oct 04, 2020 Time Seen by a Provider: 16:53 I consulted on this patient on 10/04/20 16:53 Attending Physician Yordan Gipson DO Admitting Physician [facility] Consult Allergies and Home Medications Allergies Coded Allergies: Penicillins (Verified Allergy, Mild, RASH, 05/07/18) Home Medications Albuterol Sulfate 2.5 Mg/3 Ml Vial.neb, 2.5 ML NEB TID, (Reported) Last Action: Continued Allopurinol 100 Mg Tablet, 100 MG PO DAILY, (Reported) Last Action: Continued Amlodipine Besylate 10 Mg Tablet, 10 MG PO DAILY, (Reported) Last Action: Held Ascorbate Calcium 500 Mg Tablet, 500 MG PO DAILY, (Reported) Last Action: Converted Aspirin 81 Mg Tablet.dr, 81 MG PO DAILY, (Reported) Last Action: Held Atorvastatin Calcium 40 Mg Tablet, 40 MG PO HS, (Reported) Last Action: Held Buspirone HCl 5 Mg Tablet, 5 MG PO TID, (Reported) Last Action: Continued Cyclobenzaprine HCl 5 Mg Tablet, 5 MG PO TID PRN for MUSCLE SPASMS, (Reported) Last Action: Converted Dapagliflozin Propanediol 5 Mg Tablet, 5 MG PO DAILY, (Reported) Last Action: Held Diclofenac Sodium 100 Gm Gel..gram., 1 APPLIC TOP BID PRN for PAIN-BREAKTHROUGH, (Reported) Last Action: Continued Duloxetine HCl 30 Mg Capsule.dr, 60 MG PO DAILY, (Reported) TAKES 2 (30MG) CAPS Last Action: Continued Gabapentin 300 Mg Capsule, 600 MG PO TID, (Reported) TAKES 2 (300MG) CAPS Last Action: Continued Hydrochlorothiazide 12.5 Mg Tablet, 12.5 MG PO DAILY, (Reported) Last Action: Held Insulin Glargine,Hum.rec.anlog 100 Unit/1 Ml Insuln.pen, 10 UNITS SQ HS, (Reported) Last Action: Held Losartan Potassium 50 Mg Tablet, 50 MG PO DAILY, (Reported) Last Action: Held Metformin HCl 1,000 Mg Tablet, 1,000 MG PO BID, (Reported) Last Action: Held Methyl Salicylate/Menthol 1 Each Adh..patch, 1 EACH TP BID, (Reported) Last Action: Converted Naproxen 500 Mg Tablet, 500 MG PO DAILY PRN for PAIN-MILD (1-4), (Reported) Last Action: Held Omeprazole 40 Mg Capsule.dr, 40 MG PO DAILY, (Reported) Last Action: Held Oxybutynin Chloride 5 Mg Tab.er.24, 5 MG PO DAILY, (Reported) Last Action: Continued Polyethylene Glycol 3350 17 Gm Powd.pack, 17 GM PO DAILY, (Reported) Last Action: Continued Polyethylene Glycol 400 15 Ml Drops, 2 DROPS OU QID PRN for DRY EYES, (Reported) Last Action: Converted Potassium Chloride 10 Meq Capsule.er, 10 MEQ PO BID, (Reported) Last Action: Held Quetiapine Fumarate 100 Mg Tablet, 100 MG PO HS, (Reported) Last Action: Continued Semaglutide 1 Mg/0.75 Ml Pen.injctr, 1 MG INJ FRI, (Reported) Last Action: Held Sennosides 8.6 Mg Tablet, 17.2 MG PO HS PRN for CONSTIPATION-5TH LINE, (Reported) TAKES 2 (8.6MG) TABS Last Action: Continued Trazodone HCl 50 Mg Tablet, 50 MG PO HS, (Reported) Last Action: Continued Patient Home Medication List Home Medication List Reviewed: Yes Past Zjliznl-Zjcpfb-Eecnyv Hx Patient Social History Smoking Status: Former Smoker Former Smoker, Quit: Jan 10, 2006 Type Used: Cigarettes 2nd Hand Smoke Exposure: Yes Recent Hopitalizations: No Alcohol Use?: No Have you traveled recently?: No Immunizations Up To Date Tetanus Booster (TDap): Unknown Date of Pneumonia Vaccine: Mar 24, 2017 Date of Influenza Vaccine: Dec 22, 2017 Seasonal Allergies Seasonal Allergies: Yes Surgeries History of Surgeries: Yes (POLYPS, HIATAL HERNIA REPAIR, R TKR, COLECTOMY) Surgeries: Appendectomy Respiratory History of Respiratory Disorde: Yes Respiratory Disorders: COPD, Emphysema Cardiovascular History of Cardiac Disorders: Yes Cardiac Disorders: High Cholesterol, Hypertension Neurological History of Neurological Disord: Yes Neurological Disorders: Neuropathy Reproductive System Hx Reproductive Disorders: No Sexually Transmitted Disease: No HIV/AIDS: No Genitourinary History of Genitourinary Disor: No Gastrointestinal History of Gastrointestinal Di: Yes Gastrointestinal Disorders: Gastroesophageal Reflux, Chronic Constipation, Chronic Diarrhea, Polyps Musculoskeletal History of Musculoskeletal Dis: Yes Musculoskeletal Disorders: Degenerate Disk Disease, Arthritis, Chronic Back Pain Endocrine History of Endocrine Disorders: Yes Endocrine Disorders: Diabetes, Insulin dep HEENT History of HEENT Disorders: Yes (GLASSES, DENTURES) Loss of Vision: Bilateral Hearing Impairment: Denies Cancer History of Cancer: Yes Cancer: Colon Psychosocial History of Psychiatric Problem: Yes Behavioral Health Disorders: Anxiety, Depression Integumentary History of Skin or Integumenta: No Blood Transfusions History of Blood Disorders: No Adverse Reaction to a Blood Tr: No (N/A) Reviewed Nursing Assessment Reviewed/Agree w Nursing PMH: Yes Family Medical History Significant Family History: No Pertinent Family Hx Family Medial History: BONE CANCER 19 FATHER BRAIN ANEURYSM 19 MOTHER Review of Systems Constitutional: dizziness; No fever; weakness Respiratory: No cough, No dyspnea on exertion Cardiovascular: No chest pain, No palpitations Gastrointestinal: melena; No nausea, No vomiting Musculoskeletal: No back pain Skin: No change in color, No lumps Psychiatric/Neurological: Denies Anxiety, Denies Depressed, Denies Emotional Problems All Other Systems Reviewed Negative Unless Noted: Yes (Negative excepted noted.) Physical Exam Vital Signs Vital Signs - First Documented 10/04/20 10/04/20 10/04/20 11:39 14:30 16:00 Temp 36.9 Pulse 93 Resp 18 B/P (MAP) 80/53 (62) Pulse Ox 97 O2 Delivery Room Air O2 Flow Rate 1.00 Capillary Refill : Less Than 3 Seconds Height, Weight, BMI Height: 5'7.50" Weight: 229lbs. 8.0oz. 104.771045du; 37.02 BMI Method: General Appearance: WD/WN, Anxious HEENT: PERRL/EOMI, Normal ENT Inspection Neck: Normal Inspection, Non Tender Respiratory: Chest Non Tender, No Accessory Muscle Use, No Respiratory Distress Cardiovascular: Regular Rate, Rhythm, No JVD Gastrointestinal: Non Tender, Soft; No Distended, No Guarding Rectal: Deferred Back: Normal Inspection, No CVA Tenderness Extremity: Normal Inspection, Non Tender, No Calf Tenderness Neurologic/Psychiatric: Alert, Oriented x3 Skin: Normal Color, Warm/Dry Lymphatic: No Adenopathy Data Review Labs Laboratory Tests 10/04/20 17:50: Hemoglobin 9.3L, Hematocrit 29L 10/04/20 23:25: Glucometer 94 10/04/20 23:50: Hemoglobin 8.6L, Hematocrit 27L 10/05/20 04:45: Hemoglobin 8.5L, Hematocrit 27L, White Blood Count 9.1, Red Blood Count 2.73L, Mean Corpuscular Volume 99, Mean Corpuscular Hemoglobin 31, Mean Corpuscular Hemoglobin Concent 32, Red Cell Distribution Width 13.4, Platelet Count 199, Mean Platelet Volume 10.4, Immature Granulocyte % (Auto) 2, Neutrophils (%) (Auto) 64, Lymphocytes (%) (Auto) 28, Monocytes (%) (Auto) 4, Eosinophils (%) (Auto) 2, Basophils (%) (Auto) 1, Neutrophils # (Auto) 5.8, Lymphocytes # (Auto) 2.5, Monocytes # (Auto) 0.4, Eosinophils # (Auto) 0.1, Basophils # (Auto) 0.1, Immature Granulocyte # (Auto) 0.1, Sodium Level 141, Potassium Level 3.1L, Chloride Level 105, Carbon Dioxide Level 25, Anion Gap 11, Blood Urea Nitrogen 11, Creatinine 0.56L, Estimat Glomerular Filtration Rate 108, BUN/Creatinine Ratio 20, Glucose Level 95, Calcium Level 7.9L, Corrected Calcium 8.7, Magnesium Level 1.8, Total Bilirubin 0.3, Aspartate Amino Transf (AST/SGOT) 18, Alanine Aminotransferase (ALT/SGPT) 26, Alkaline Phosphatase 49, Total Protein 5.4L, Albumin 3.0L 10/05/20 12:39: Glucometer 115H Assessment/Plan Assessment/Plan Admission Diagonsis Gastrointestinal bleed after colonoscopy. Patient reports of being dark which could make it upper with patient also being on naproxen, but also with recent polypectomy and biopsies of colon could be lower as well. Hypotension Long-term antiplatelet use. Anemia secondary to above Admission Status: Inpatient Order (span 2 midnights) Reason for Inpatient Admission: Patient will need repeat labs. May need endoscopy if continues to bleed. Will need to slowly advance diet to make sure she tolerates and does not rebleed. Requiring 2 nights. Assessment/Plan Gastrointestinal bleed after colonoscopy. Patient reports of being dark which could make it upper with patient also being on naproxen, but also with recent polypectomy and biopsies of colon could be lower as well. Long-term antiplatelet use. Anemia secondary to above Follow hemoglobin. Type and cross 2 units to hold Keep n.p.o. currently. Patient may need EGD and colonoscopy for further evaluation. If stabilizes can will advance diet slowly. YORDAN GIPSON DO Oct 04, 2020 16:54
[2020-10-04 18:03] LABS: HEMOGLOBIN 9.3 g/dL (11.5-16.0)
[2020-10-04 19:52] VITALS: BP 128/73
[2020-10-04] MEDS ORDERED: DICLOFENAC 1% GEL 100 GM (VOLTAREN) TUBE TOP PRN (20:45)
[2020-10-04] MEDS ORDERED: SENNOSIDES 8.6 MG (SENOKOT) TAB PO PRN (20:45)
[2020-10-04] MEDS ORDERED: NON-FORMULARY MEDICATION 1 EA EA (Methyl Salicylate/Menthol (Salonpas Patch) 1 EACH) TP SCH (21:00)
[2020-10-04] MEDS: busPIRone 5 MG (BUSPAR) TAB PO SCH (22:03)
[2020-10-04] MEDS: QUEtiapine 100 MG (SEROquel) TAB IMMEDIATE RELEASE PO SCH (22:03)
[2020-10-04] MEDS: traZODone 50 MG (DESYREL) TAB PO SCH (22:04)
[2020-10-04] MEDS: GABAPENTIN 300 MG (NEURONTIN) CAP PO SCH (22:04)
[2020-10-04] MEDS ORDERED: CYCLOBENZAPRINE 10 MG (FLEXERIL) TAB PO PRN (22:15)
[2020-10-04] MEDS ORDERED: ARTIFICAL TEARS 0.4 ML UNIT DOSE (REFRESH PLUS) OU PRN (22:15)
[2020-10-04] MEDS: RT-ALBUTEROL SULF 2.5 MG/3 ML PRE-MIX VIAL IH SCH (22:27)
[2020-10-04 23:55] LABS: HEMOGLOBIN 8.6 g/dL (11.5-16.0)
[2020-10-05 00:19] VITALS: BP_SYST 146; BP_SYST 96; BP_DIAS 48; BP_DIAS 64
[2020-10-05 03:51] VITALS: BP 108/65
[2020-10-05 05:12] LABS: BASOPHILS # (AUTO) 0.1 10^3/uL (0.0-0.1); BASOPHILS % (AUTO) 1 % (0-10); EOSINOPHILS # (AUTO) 0.1 10^3/uL (0.0-0.3); EOSINOPHILS % (AUTO) 2 % (0-10); HEMATOCRIT 27 % (35-52); HEMOGLOBIN 8.5 g/dL (11.5-16.0); LYMPHOCYTES # (AUTO) 2.5 10^3/uL (1.0-4.0); LYMPHOCYTES % (AUTO) 28 % (12-44); MEAN CORPUSCULAR HEMOGLOBIN 31 pg (25-34); MEAN CORPUSCULAR HGB CONC 32 g/dL (32-36); MEAN CORPUSCULAR VOLUME 99 fL (80-99); MEAN PLATELET VOLUME 10.4 fL (9.0-12.2); MONOCYTES # (AUTO) 0.4 10^3/uL (0.0-1.0); MONOCYTES % (AUTO) 4 % (0-12); NEUTROPHILS # (AUTO) 5.8 10^3/uL (1.8-7.8); NEUTROPHILS % (AUTO) 64 % (42-75); PLATELET COUNT 199 10^3/uL (130-400); WHITE BLOOD COUNT 9.1 10^3/uL (4.3-11.0)
[2020-10-05 05:17] LABS: POTASSIUM 3.1 MMOL/L (3.6-5.0)
[2020-10-05 05:18] LABS: CALCIUM 7.9 MG/DL (8.5-10.1)
[2020-10-05 05:20] LABS: TOTAL PROTEIN 5.4 GM/DL (6.4-8.2)
[2020-10-05 05:22] LABS: BILIRUBIN,TOTAL 0.3 MG/DL (0.1-1.0)
[2020-10-05 05:23] LABS: CREATININE SERUM 0.56 MG/DL (0.60-1.30)
[2020-10-05] MEDS: LACTATED RINGERS 1,000 ML IV SCH ×3 (06:18→22:31)
--- NOTE | 2020-10-05 06:27 | Progress Note - Hospitalist ---
Subjective HPI/CC On Admission Date Seen by Provider: Oct 05, 2020 Time Seen by Provider: 10:30 CC: GI bleed HPI: This is a [facility] patient who presented to the ER with several days of dark stools and severe dizziness and syncopal episode. She was found to have Hgb of 11, but high suspicion for upper GI bleed. Dr. Gipson will maintain supportive care and perform EGD. I know her from prior hospital stays. She denies any other significant issues. Subjective/Events-last exam Pt doing a lot better today Denies any significant issues No pain Hgb 8.5 Feels pretty weak Moving down to 4th floor She told me that [facility] now Review of Systems General: Fatigue Objective Exam Vital Signs Vital Signs Date Time Temp Pulse Resp B/P (MAP) Pulse Ox O2 Delivery O2 Flow Rate FiO2 10/06/20 04:00 74 20 109/49 (69) 92 Nasal Cannula 3.00 10/05/20 20:00 36.2 Capillary Refill : Less Than 3 Seconds General Appearance: No Apparent Distress, WD/WN, Chronically ill Respiratory: Lungs Clear Cardiovascular: Regular Rate, Rhythm Neurologic/Psychiatric: Alert, Oriented x3 Results/Procedures Lab Laboratory Tests 10/06/20 03:16 Patient resulted labs reviewed. Assessment/Plan Assessment and Plan Assess & Plan/Chief Complaint Assessment: Upper GI bleed Acute blood loss anemia Diabetes Hypertension Hyperlipidemia Plan: Dr. Gipson for scope Monitor closely for transfusion 10/05/2020: Supportive care Monitor hemoglobin Therapy Diagnosis/Problems Diagnosis/Problems (1) GI bleed Status: Acute Qualifiers: GI bleed type/associated pathology: unspecified gastrointestinal hemorrhage type Qualified Codes: K92.2 - Gastrointestinal hemorrhage, unspecified JESSICA SANTIAGO DO Oct 05, 2020 06:27
[2020-10-05 07:42] VITALS: BP 117/72
[2020-10-05] MEDS: RT-ALBUTEROL SULF 2.5 MG/3 ML PRE-MIX VIAL IH SCH ×3 (09:23→20:17)
[2020-10-05] MEDS: busPIRone 5 MG (BUSPAR) TAB PO SCH ×3 (09:27→20:26)
[2020-10-05] MEDS: GABAPENTIN 300 MG (NEURONTIN) CAP PO SCH ×3 (09:28→20:26)
[2020-10-05] MEDS: ALLOPURINOL 100 MG (ZYLOPRIM) TAB PO SCH (09:28)
[2020-10-05] MEDS: DULoxetine 30 MG (CYMBALTA) CAP PO SCH (09:28)
[2020-10-05] MEDS: polyethylene glycoL POWDER 17 GM (MIRALAX) PACK PO SCH (09:29)
[2020-10-05] MEDS: ASCORBIC ACID (VIT C) 500 MG TABLET PO SCH (09:29)
[2020-10-05] MEDS: OXYBUTYNIN (DITROPAN) 5 MG TAB PO SCH ×2 (09:29→20:26)
[2020-10-05] MEDS ORDERED: MAGNESIUM 1 GM/100 ML IVPB 100 ML IV ONE (11:15)
[2020-10-05 11:25] VITALS: BP 116/69
[2020-10-05] MEDS: POTASSIUM CL 10MEQ/50ML IVPB 50 ML IV SCH ×4 (12:42→16:43)
[2020-10-05] MEDS: PANTOPRAZOLE DRIP 200 MG/NS 100 ML IV SCH ×2 (13:57)
--- NOTE | 2020-10-05 14:54 | Progress Note - Surgery ---
Subjective Date Seen by a Provider: Oct 05, 2020 Time Seen by a Provider: 14:51 Subjective/Events-last exam Patient doing well. She has not had any more bloody bowel movements. Patient hemoglobin 8.5 today. Started on clear liquids and tolerating okay. Patient has no abdominal pain. She denies any nausea vomiting fever sweats chills shortness of breath or chest pain at this time. Objective Exam Vital Signs Date Time Temp Pulse Resp B/P (MAP) Pulse Ox O2 Delivery O2 Flow Rate FiO2 10/05/20 13:58 93 Nasal Cannula 2.00 10/05/20 11:25 36.6 95 15 116/69 (85) 95 Nasal Cannula 2.00 10/05/20 09:23 94 Nasal Cannula 2.00 10/05/20 08:45 95 Nasal Cannula 2.00 10/05/20 08:12 Nasal Cannula 2.00 10/05/20 07:42 37.1 109 17 117/72 (87) 98 Nasal Cannula 1.00 10/05/20 03:51 36.0 85 16 108/65 (79) 94 Nasal Cannula 1.00 10/05/20 00:19 36.0 92 19 96/48 (64) 93 Nasal Cannula 1.00 10/04/20 22:27 90 Nasal Cannula 2.00 10/04/20 21:00 94 Nasal Cannula 2.00 10/04/20 20:13 96 Nasal Cannula 1.00 10/04/20 19:52 37.1 92 16 128/73 (91) 96 Nasal Cannula 1.00 10/04/20 16:00 36.4 90 20 108/70 (83) 93 Nasal Cannula 1.00 I & O 10/05/20 06:59 Intake Total 1000 ml Output Total 1450 ml Balance -450 ml Capillary Refill : Less Than 3 Seconds General Appearance: No Apparent Distress, Anxious, Chronically ill, Obese HEENT: PERRL/EOMI, Normal ENT Inspection Neck: Full Range of Motion, Normal Inspection, Non Tender, Supple, Carotid Bruit Respiratory: Chest Non Tender, No Accessory Muscle Use, No Respiratory Distress Cardiovascular: Regular Rate, Rhythm, Normal Peripheral Pulses Gastrointestinal: non tender, soft Extremity: Normal Inspection, Normal Range of Motion, Non Tender, No Calf Tenderness, No Pedal Edema Neurologic/Psychiatric: Alert, Oriented x3, No Motor/Sensory Deficits, Normal Mood/Affect Skin: Normal Color, Warm/Dry Lymphatic: No Adenopathy Results Lab Laboratory Tests 10/04/20 17:50: Hemoglobin 9.3L, Hematocrit 29L 10/04/20 23:25: Glucometer 94 10/04/20 23:50: Hemoglobin 8.6L, Hematocrit 27L 10/05/20 04:45: Hemoglobin 8.5L, Hematocrit 27L, White Blood Count 9.1, Red Blood Count 2.73L, Mean Corpuscular Volume 99, Mean Corpuscular Hemoglobin 31, Mean Corpuscular Hemoglobin Concent 32, Red Cell Distribution Width 13.4, Platelet Count 199, Mean Platelet Volume 10.4, Immature Granulocyte % (Auto) 2, Neutrophils (%) (Auto) 64, Lymphocytes (%) (Auto) 28, Monocytes (%) (Auto) 4, Eosinophils (%) (Auto) 2, Basophils (%) (Auto) 1, Neutrophils # (Auto) 5.8, Lymphocytes # (Auto) 2.5, Monocytes # (Auto) 0.4, Eosinophils # (Auto) 0.1, Basophils # (Auto) 0.1, Immature Granulocyte # (Auto) 0.1, Sodium Level 141, Potassium Level 3.1L, Chloride Level 105, Carbon Dioxide Level 25, Anion Gap 11, Blood Urea Nitrogen 11, Creatinine 0.56L, Estimat Glomerular Filtration Rate 108, BUN/Creatinine Ratio 20, Glucose Level 95, Calcium Level 7.9L, Corrected Calcium 8.7, Magnesium Level 1.8, Total Bilirubin 0.3, Aspartate Amino Transf (AST/SGOT) 18, Alanine Aminotransferase (ALT/SGPT) 26, Alkaline Phosphatase 49, Total Protein 5.4L, Albumin 3.0L 10/05/20 12:39: Glucometer 115H Assessment/Plan Assessment/Plan Assessment/Plan Gastrointestinal bleed after colonoscopy. Patient reports of being dark which could make it upper with patient also being on naproxen, but also with recent polypectomy and biopsies of colon could be lower as well. Long-term antiplatelet use. Anemia secondary to above Hypokalemia -replace Patient started on clear liquids today. Patient will have repeat labs in the morning. Continue Protonix YORDAN MORRISSEY DO Oct 05, 2020 14:54
[2020-10-05 16:44] VITALS: BP 124/77
[2020-10-05 20:00] VITALS: BP 122/66
[2020-10-05] MEDS: traZODone 50 MG (DESYREL) TAB PO SCH (20:26)
[2020-10-05] MEDS: QUEtiapine 100 MG (SEROquel) TAB IMMEDIATE RELEASE PO SCH (20:26)
[2020-10-06] VITALS: BP 105/56
[2020-10-06 03:51] LABS: BASOPHILS # (AUTO) 0.1 10^3/uL (0.0-0.1); BASOPHILS % (AUTO) 1 % (0-10); EOSINOPHILS # (AUTO) 0.2 10^3/uL (0.0-0.3); EOSINOPHILS % (AUTO) 2 % (0-10); HEMATOCRIT 25 % (35-52); HEMOGLOBIN 7.7 g/dL (11.5-16.0); LYMPHOCYTES # (AUTO) 2.3 10^3/uL (1.0-4.0); LYMPHOCYTES % (AUTO) 32 % (12-44); MEAN CORPUSCULAR HEMOGLOBIN 31 pg (25-34); MEAN CORPUSCULAR HGB CONC 31 g/dL (32-36); MEAN CORPUSCULAR VOLUME 100 fL (80-99); MEAN PLATELET VOLUME 10.4 fL (9.0-12.2); MONOCYTES # (AUTO) 0.4 10^3/uL (0.0-1.0); MONOCYTES % (AUTO) 5 % (0-12); NEUTROPHILS # (AUTO) 4.1 10^3/uL (1.8-7.8); NEUTROPHILS % (AUTO) 58 % (42-75); PLATELET COUNT 186 10^3/uL (130-400); WHITE BLOOD COUNT 7.1 10^3/uL (4.3-11.0)
[2020-10-06 04:00] VITALS: BP 109/49
[2020-10-06 04:01] LABS: ALBUMIN 3.1 GM/DL (3.2-4.5); POTASSIUM 3.5 MMOL/L (3.6-5.0)
[2020-10-06 04:03] LABS: CALCIUM 7.9 MG/DL (8.5-10.1)
[2020-10-06 04:04] LABS: TOTAL PROTEIN 5.4 GM/DL (6.4-8.2)
[2020-10-06 04:06] LABS: BILIRUBIN,TOTAL 0.3 MG/DL (0.1-1.0)
[2020-10-06 04:07] LABS: CREATININE SERUM 0.56 MG/DL (0.60-1.30)
--- NOTE | 2020-10-06 06:11 | Progress Note - Hospitalist ---
Subjective HPI/CC On Admission Date Seen by Provider: Oct 06, 2020 Time Seen by Provider: 10:00 CC: GI bleed HPI: This is a [facility] patient who presented to the ER with several days of dark stools and severe dizziness and syncopal episode. She was found to have Hgb of 11, but high suspicion for upper GI bleed. Dr. Gipson will maintain supportive care and perform EGD. I know her from prior hospital stays. She denies any other significant issues. Subjective/Events-last exam Patient doing well Hgb 7.7 EGD today if negative will have C scope tomorrow after prep Feels pretty good otherwise Review of Systems General: Fatigue, Malaise Objective Exam Vital Signs Vital Signs Date Time Temp Pulse Resp B/P (MAP) Pulse Ox O2 Delivery O2 Flow Rate FiO2 10/06/20 13:00 37.0 85 20 95 Nasal Cannula 3.00 Capillary Refill : Less Than 3 Seconds General Appearance: No Apparent Distress, WD/WN, Chronically ill Respiratory: Lungs Clear, Normal Breath Sounds Cardiovascular: Regular Rate, Rhythm Neurologic/Psychiatric: Alert, Oriented x3 Results/Procedures Lab Laboratory Tests 10/06/20 03:16 Patient resulted labs reviewed. Assessment/Plan Assessment and Plan Assess & Plan/Chief Complaint Assessment: Upper GI bleed Acute blood loss anemia Diabetes Hypertension Hyperlipidemia Plan: Dr. Gipson for scope Monitor closely for transfusion 10/05/2020: Supportive care Monitor hemoglobin Therapy 10/06/20: EGD today Monitor hgb Diagnosis/Problems Diagnosis/Problems (1) GI bleed Status: Acute Qualifiers: GI bleed type/associated pathology: unspecified gastrointestinal hemorrhage type Qualified Codes: K92.2 - Gastrointestinal hemorrhage, unspecified JESSICA SANTIAGO DO Oct 06, 2020 06:11
[2020-10-06] MEDS: LACTATED RINGERS 1,000 ML IV SCH ×2 (06:18→17:19)
[2020-10-06] MEDS: RT-ALBUTEROL SULF 2.5 MG/3 ML PRE-MIX VIAL IH SCH ×2 (07:41→15:56)
[2020-10-06 08:08] VITALS: BP 140/78
--- NOTE | 2020-10-06 09:03 | Physical Therapy Evaluation ---
PT Evaluation-General Medical Diagnosis Admission Date Oct 04, 2020 at 12:40 Medical Diagnosis: GI bleed Onset Date: Oct 04, 2020 Therapy Diagnosis Therapy Diagnosis: impaired mobility, strength, endurance Height/Weight Height (Feet): 5 Height (Inches): 7.50 Weight (Pounds): 229 Weight (Ounces): 8.0 Precautions Precautions/Isolations: Fall Prevention, Standard Precautions Referral Physician: Jenn Ernst DO Reason for Referral: Evaluation/Treatment Medical History Additional Medical History Past Medical History Surgeries: Yes (POLYPS, HIATAL HERNIA REPAIR, R TKR, COLECTOMY) Appendectomy Respiratory: Yes COPD, Emphysema Cardiac: Yes High Cholesterol, Hypertension Neurological: Yes Neuropathy Reproductive Disorders: No Sexually Transmitted Disease: No HIV/AIDS: No Genitourinary: No Gastrointestinal: Yes Gastroesophageal Reflux, Chronic Constipation, Chronic Diarrhea, Polyps Musculoskeletal: Yes Degenerate Disk Disease, Arthritis, Chronic Back Pain Endocrine: Yes Diabetes, Insulin dep HEENT: Yes (GLASSES, DENTURES) Loss of Vision: Bilateral Hearing Impairment: Denies Cancer: Yes Colon Did You Recieve Any Treatments: Yes What Type of Treatment Did You: Surgical Intervention Psychosocial: Yes Anxiety, Depression Reviewed History: Yes Social History Home: Detention Prior Prior Level of Function SCALE: Activities may be completed with or without assistive devices. 6-Hehzcigjqh-gaqkwrr completes the activity by him/herself with no assistance from a helper. 5-Set-up or Clean-up Assistance-helper sets up or cleans up; patient completes activity. [place] assists only prior to or following the activity. 4-Supervision or Touching Assistance-helper provides verbal cues and/or touching/steadying and/or contact guard assistance as patient completes activity. Assistance may be provided throughout the activity or intermittently. 3-Partial/Moderate Assistance-helper does LESS THAN HALF the effort. [place] lifts, holds or supports trunk or limbs, but provides less than half the effort. 2-Substantial/Maximal Assistance-helper does MORE THAN HALF the effort. [place] lifts or holds trunk or limbs and provides more than half the effort. 8-Gktaecrcm-ptnvvi does ALL the effort. Patient does none of the effort to complete the activity. Or, the assistance of 2 or more helpers is required for the patient to complete the activity. If activity was not attempted, code reason: 7-Patient Refused. 9-Not Applicable-not attempted and the patient did not perform the activity before the current illness, exacerbation or injury. 10-Not Attempted due to Environmental Limitations-(lack of equipment, weather restraints, etc.). 88-Not Attempted due to Medical Conditions or Safety Concerns. Bed Mobility: 6 Transfers (B,C,W/C): 6 Gait: 6 Prior Devices Use: Walker PT Evaluation-Current Subjective Patient in bed pre tx, agrees to PT, has minor chronic back pain. Patient says she desperately needs to use the commode. Pt/Family Goals to be independent at home Objective Patient Orientation: Person, Place, Situation Attachments: Oxygen, IV ROM/Strength ROM Lower Extremities WNL Strength Lower Extremities 4/5 gross BLE Sensory Hearing: Functional Sensation Right Lower Extremit: Intact Sensation Left Lower Extremity: Intact Transfers Roll Left to Right (QC): 6 Sit to Lying (QC): 6 Lying to Sitting/Side of Bed(Q: 6 Sit to Stand (QC): 4 Chair/Scw-ut-Kcmat Xfer(QC): 4 Toilet Transfer (QC): 4 Patient sit <-> stand with CGA, transfers with CGA, she is able to toilet herself including wiping. Gait Does the Patient Walk?: Yes Mode of Locomotion: Walk Anticipated Mode of Locomotion: Walk Walk 10 feet (QC): 4 Distance: 30' Gait Assistive Device: FWW Comments/Gait Description slow but steady ambulation, CGA, short choppy steps but not a festinating gait Balance Sitting Static: Normal Sitting Dynamic: Normal Standing Static: Good Standing Dynamic: Good Treatment BLE supine exercises x20 (AP, HS, QS) Assessment/Needs Patient in bed post tx with nurse call, phone, tray, all needs met. Patient has impaired mobility, strength, endurance. She just needs CGA for transfers and ambulation. Her O2 stayed in the mid 90's during activity. Rehab Potential: Fair PT Creative Art Therapist Goals Creative Art Therapist Goals PT Creative Art Therapist Goals Time Frame: Oct 13, 2020 Roll Left & Right (QC): 6 Sit to Lying (QC): 6 Lying-Sitting on Side/Bed(QC): 6 Sit to Stand (QC): 6 Chair/Lfh-oa-Kngwa Xfer(QC): 6 Walk 10 feet (QC): 6 Walk 50ft with 2 Turns (QC): 6 PT Plan Problem List Problem List: Activity Tolerance, Functional Strength, Safety, Balance, Gait, Transfer, ROM Treatment/Plan Treatment Plan: Continue Plan of Care Treatment Plan: Education, Functional Activity Zain, Functional Strength, Gait, Safety, Therapeutic Exercise, Transfers Treatment Duration: Oct 13, 2020 Frequency: 6 times per week Estimated Hrs Per Day: .25 hour per day Patient and/or Family Agrees t: Yes Safety Risks/Education Patient Education: Gait Training, Transfer Techniques, Correct Positioning, Safety Issues Teaching Recipient: Patient Teaching Methods: Demonstration, Discussion Response to Teaching: Reinforcement Needed Discharge Recommendations Plan Patient will perform bed mobility and transfer training, balance and endurance training, functional strengthening, gait training, and education, to improve functional mobility and independence at home. Therapy Discharge Recommendati: 24 Hour Supervision, Post Acute PT Time/GCodes Time In: 829 Time Out: 843 Total Billed Treatment Time: 14 Total Billed Treatment 1 visit ADRIANNA HERRERA PT Oct 06, 2020 09:03
[2020-10-06] MEDS: DULoxetine 30 MG (CYMBALTA) CAP PO SCH (09:47)
[2020-10-06] MEDS: GABAPENTIN 300 MG (NEURONTIN) CAP PO SCH ×3 (09:47→20:07)
[2020-10-06] MEDS: polyethylene glycoL POWDER 17 GM (MIRALAX) PACK PO SCH (09:47)
[2020-10-06] MEDS: busPIRone 5 MG (BUSPAR) TAB PO SCH ×3 (09:47→20:07)
[2020-10-06] MEDS: OXYBUTYNIN (DITROPAN) 5 MG TAB PO SCH ×2 (09:47→20:07)
[2020-10-06] MEDS: ALLOPURINOL 100 MG (ZYLOPRIM) TAB PO SCH (09:48)
[2020-10-06] MEDS: ASCORBIC ACID (VIT C) 500 MG TABLET PO SCH (09:48)
--- NOTE | 2020-10-06 09:56 | Progress Note - Surgery ---
Subjective Date Seen by a Provider: Oct 06, 2020 Time Seen by a Provider: 09:53 Subjective/Events-last exam Patient had drop in hgb 7.7. Patient has been on clears. No bloody bowel movements. Denies n/v fever sweats chills shortness of breath or chest pain. Objective Exam Vital Signs Date Time Temp Pulse Resp B/P (MAP) Pulse Ox O2 Delivery O2 Flow Rate FiO2 10/06/20 08:08 36.5 84 21 140/78 (98) 95 Nasal Cannula 3.00 10/06/20 07:42 94 Nasal Cannula 3.00 10/06/20 04:00 74 20 109/49 (69) 92 Nasal Cannula 3.00 10/06/20 00:00 77 20 105/56 (72) 93 Nasal Cannula 3.00 10/05/20 21:00 95 Nasal Cannula 3.00 10/05/20 20:54 Nasal Cannula 3.00 10/05/20 20:17 95 Nasal Cannula 2.00 10/05/20 20:00 36.2 79 20 122/66 (84) 95 Nasal Cannula 2.00 10/05/20 16:44 36.5 92 25 124/77 (93) 94 Nasal Cannula 2.00 10/05/20 13:58 93 Nasal Cannula 2.00 10/05/20 11:25 36.6 95 15 116/69 (85) 95 Nasal Cannula 2.00 I & O 10/06/20 07:00 Intake Total 2100 ml Output Total 2850 ml Balance -750 ml Capillary Refill : Less Than 3 Seconds General Appearance: No Apparent Distress, WD/WN, Chronically ill HEENT: PERRL/EOMI, Normal ENT Inspection Neck: Normal Inspection, Non Tender Respiratory: Chest Non Tender, No Accessory Muscle Use, No Respiratory Distress Cardiovascular: Regular Rate, Rhythm, No JVD Gastrointestinal: non tender, soft Extremity: Normal Inspection, Non Tender, No Calf Tenderness Neurologic/Psychiatric: Alert, Oriented x3 Skin: Normal Color, Warm/Dry Lymphatic: No Adenopathy Results Lab Laboratory Tests 10/05/20 12:39: Glucometer 115H 10/05/20 16:52: Glucometer 116H 10/05/20 22:57: Glucometer 118H 10/06/20 03:16: White Blood Count 7.1, Red Blood Count 2.46L, Hemoglobin 7.7L, Hematocrit 25L, Mean Corpuscular Volume 100H, Mean Corpuscular Hemoglobin 31, Mean Corpuscular Hemoglobin Concent 31L, Red Cell Distribution Width 13.7, Platelet Count 186, Mean Platelet Volume 10.4, Immature Granulocyte % (Auto) 2, Neutrophils (%) (Auto) 58, Lymphocytes (%) (Auto) 32, Monocytes (%) (Auto) 5, Eosinophils (%) (Auto) 2, Basophils (%) (Auto) 1, Neutrophils # (Auto) 4.1, Lymphocytes # (Auto) 2.3, Monocytes # (Auto) 0.4, Eosinophils # (Auto) 0.2, Basophils # (Auto) 0.1, Immature Granulocyte # (Auto) 0.1, Sodium Level 145, Potassium Level 3.5L, Chloride Level 109H, Carbon Dioxide Level 27, Anion Gap 9, Blood Urea Nitrogen 4L, Creatinine 0.56L, Estimat Glomerular Filtration Rate 108, BUN/Creatinine Ra merle 7, Glucose Level 109H, Calcium Level 7.9L, Corrected Calcium 8.6, Total Bilirubin 0.3, Aspartate Amino Transf (AST/SGOT) 14, Alanine Aminotransferase (ALT/SGPT) 19, Alkaline Phosphatase 49, Total Protein 5.4L, Albumin 3.1L Assessment/Plan Assessment/Plan Assessment/Plan Gastrointestinal bleed after colonoscopy. Patient reports of being dark which could make it upper with patient also being on naproxen, but also with recent polypectomy and biopsies of colon could be lower as well. Long-term antiplatelet use. Anemia secondary to above hypokalemia-improved. Follow hemoglobin. Type and cross 2 units held n.p.o. Since dropping discussed with patient endoscopy. Wants to do egd today. If no source found will prep and do colonoscopy tomorrow. Patient understands risks and benefits. YORDAN MORRISSEY DO Oct 06, 2020 09:56
--- NOTE | 2020-10-06 11:57 | Occupational Therapy Eval ---
OT Evaluation-General/PLF Medical Diagnosis Admission Date Oct 04, 2020 at 12:40 Medical Diagnosis: GI bleed Onset Date: Oct 04, 2020 Therapy Diagnosis Therapy Diagnosis: weakness, decreased ADL status Height/Weight Height (Feet): 5 Height (Inches): 7.50 Weight (Pounds): 229 Weight (Ounces): 8.0 Precautions Precautions/Isolations: Fall Prevention, Standard Precautions Referral Physician: Jenn Ernst DO Referral Reason: Evaluation/Treatment Medical History Additional Medical History COPD, emphysema, HTN, neuropathy, GERD, arthritis, DM, colon cancer Current History ED due to blood in stool. Reviewed History: Yes Social History Home: Assisted Living ([facility]) ADL-Prior Level of Function SCALE: Activities may be completed with or without assistive devices. 2-Qxvqrzexfz-shfddgf completes the activity by him/herself with no assistance from a helper. 5-Set-up or Clean-up Assistance-helper sets up or cleans up; patient completes activity. [place] assists only prior to or following the activity. 4-Supervision or Touching Assistance-helper provides verbal cues and/or touching/steadying and/or contact guard assistance as patient completes activity. Assistance may be provided throughout the activity or intermittently. 3-Partial/Moderate Assistance-helper does LESS THAN HALF the effort. [place] lifts, holds or supports trunk or limbs, but provides less than half the effort. 2-Substantial/Maximal Assistance-helper does MORE THAN HALF the effort. [place] lifts or holds trunk or limbs and provides more than half the effort. 2-Exblzwjsf-kcvczs does ALL the effort. Patient does none of the effort to complete the activity. Or, the assistance of 2 or more helpers is required for the patient to complete the activity. If activity was not attempted, code reason: 7-Patient Refused. 9-Not Applicable-not attempted and the patient did not perform the activity before the current illness, exacerbation or injury. 10-Not Attempted due to Environmental Limitations-(lack of equipment, weather restraints, etc.). 88-Not Attempted due to Medical Conditions or Safety Concerns. ADL PLOF Comments Pt reports IND with toileting, dressing and bathing. Self Care: Needed Some Help OT Current Status Subjective Pt laying in bed, agreeable to OT evaluation and tx. Pt states she is nervous for procedure this afternoon Mental Status/Objective Patient Orientation: Person, Place, [place] Attachments: IV, Oxygen, Telemetry Current Glasses/Contacts: Yes Dentures/Partials: Yes Upper Extremity ROM WFL, BUE shoulder flexion to approx 125 degrees Upper Extremity Coordination WFL Upper Extremity Sensation WFL Upper Extremity Strength grossly 3+/5 ADL-Treatment Eating (QC): 6 (Per pt report) Oral Hygiene (QC): 7 (Pt declined as her dentures are soaking at sink, she does not wish to put them in) Toileting Hygiene (QC): 6 (IND with hygiene) Other Treatments Pt laying in bed, transferred supine to sit EOB, then transfer to [facility]. Pt completed toileting, then transferred back to bed using FWW, SBA. Pt able to wash her face with set up assistance. OT educated pt on BUE exercises in order to increase strength and activity tolerance, pt completed x10 reps each of the following: shoulder flexion, elbow flexion, elbow extension and finger flexion/ extension. Pt instructed to complete exercises, increasing reps as tolerated. Post tx, pt laying in bed, call light in reach and all needs met. Education OT Patient Education: Correct positioning, Modified ADL techniques, Progress toward Goal/Update tx plan, Purpose of tx/functional activities, Rehab process Teaching Recipient: Patient Teaching Methods: Discussion Response to Teaching: Verbalize Understanding OT Fpc Goals Fpc Goals Time Frame: Oct 13, 2020 Eating (QC): 6 Oral Hygiene (QC): 6 Toileting Hygiene (QC): 6 Shower/Bathe Self (QC): 5 Upper Body Dressing (QC): 6 Lower Body Dressing (QC): 6 On/Off Footwear (QC): 6 Additional Goals: 1-Demonstrate ADL Tasks, 2-Verbalize Understanding, 3- ImproveStrength/Zain 1=Demonstrate adherence to instructed precautions during ADL tasks. 2=Patient will verbalize/demonstrate understanding of assistive devices/modifications for ADL. 3=Patient will improve strength/tolerance for activity to enable patient to perform ADL's. OT Education/Plan Problem List/Assessment Assessment: Decreased Activ Tolerance, Decreased UE Strength, Impaired Funct Balance, Impaired I ADL's, Impaired Self-Care Skills, Restricted Funct UE ROM Discharge Recommendations Plan/Recommendations: Continue POC Treatment Plan/Plan of Care Patient would benefit from OT for education, treatment and training to promote independence in ADL's, mobility, safety and/or upper extremity function for ADL's. Plan of Care: ADL Retraining, Functional Mobility, UE Funct Exercise/Act Treatment Duration: Oct 13, 2020 Frequency: 5 times per week Estimated Hrs Per Day: .25 hour per day Rehab Potential: Fair Time/GCodes Start Time: 10:29 Stop Time: 10:46 Total Time Billed (hr/min): 17 Billed Treatment Time 1, CHELA SWAIN OT Oct 06, 2020 11:56
[2020-10-06] MEDS ORDERED: LACTATED RINGERS 1,000 ML IV ONE (14:27)
[2020-10-06] MEDS ORDERED: proPOfol 200 MG/20 ML (DIPRIVAN) VIAL IV ONE (14:49)
[2020-10-06] MEDS ORDERED: HURRICAINE EXT TUBE (BENZOCAINE) XX ONE (14:49)
[2020-10-06 15:41] VITALS: BP 120/57
[2020-10-06 16:00] VITALS: BP 159/93
[2020-10-06] MEDS ORDERED: GOLYTELY POWDER 4000 ML BTL PO NR (16:30)
--- NOTE | 2020-10-06 18:51 | Anesthesia-General Post-Op ---
MAC Patient Condition Mental Status/LOC: Same as Preop Cardiovascular: Satisfactory Nausea/Vomiting: Absent Respiratory: Satisfactory Pain: Controlled Complications: Absent Post Op Complications Complications None Follow Up Care/Instructions Patient Instructions None needed. Anesthesiology Discharge Order Discharge Order Patient is doing well, no complaints, stable vital signs, no apparent adverse anesthesia problems. No complications reported per nursing. LAUREN WELCH CRNA Oct 06, 2020 18:51
[2020-10-06] MEDS: PANTOPRAZOLE DRIP 200 MG/NS 100 ML IV SCH ×2 (18:53)
[2020-10-06 20:00] VITALS: BP 165/74
[2020-10-06] MEDS: QUEtiapine 100 MG (SEROquel) TAB IMMEDIATE RELEASE PO SCH (20:07)
[2020-10-06] MEDS: traZODone 50 MG (DESYREL) TAB PO SCH (20:07)
--- NOTE | 2020-10-06 23:50 | OPERATIVE REPORT ---
DATE OF SERVICE: 10/06/2020 PREOPERATIVE DIAGNOSES: Anemia, gastrointestinal bleed. POSTOPERATIVE DIAGNOSES: Hiatal hernia, slight gastritis. PROCEDURE: EGD. SURGEON: Yordan Gipson DO ANESTHESIA: Per [employer]. ESTIMATED BLOOD LOSS: None. COMPLICATIONS: None. INDICATIONS: The patient is a 70-year-old female who was admitted for GI bleed. She had recent colonoscopy with polypectomy and cold biopsies. The patient is having melanotic stools as well previous to admission. She continued to have a hemoglobin drop. We discussed endoscopy. She would like to proceed with EGD at this time. She understands risks and benefits of procedure and wishes to proceed. Consent was signed in the chart. DESCRIPTION OF PROCEDURE: The patient was taken to the endoscopy suite, placed in left lateral recumbent position. Timeout was performed. Scope was inserted in mouth, down the esophagus, stomach and into the duodenum without difficulty. No polyps, masses or ulcerations. Scope was slowly retracted back into the stomach where it was further insufflated. Some very slight gastritis in the antrum. No polyps, masses or ulcerations. Scope was retroflexed noting a small hiatal hernia, no other pathology. Scope was returned to its normal position, slowly withdrawn to distal esophagus. No polyps, masses or ulcerations. Scope was slowly retracted back to completely remove noting no other pathology. The patient tolerated procedure well without any complications. She was taken to recovery room in stable condition. RECOMMENDATIONS: Since no source of bleeding present, would plan on colonoscopy as we discussed for her plan. We will do GoLYTELY prep, n.p.o. after midnight and plan for colonoscopy tomorrow. Job ID: [id number] DocumentID: [id number] Dictated Date: 10/06/2020 18:56:01 Hardboard Coating Machine Operator Date: 10/06/2020 23:49:48 Dictated By: YORDAN GIPSON DO
[2020-10-07] VITALS (10 sets, daily range): BP systolic 111–167; BP diastolic 56–97
[2020-10-07] MEDS: LACTATED RINGERS 1,000 ML IV SCH ×3 (02:11→20:53)
[2020-10-07 05:52] LABS: HEMATOCRIT 27 % (35-52); HEMOGLOBIN 8.6 g/dL (11.5-16.0); MEAN CORPUSCULAR HEMOGLOBIN 32 pg (25-34); MEAN CORPUSCULAR HGB CONC 32 g/dL (32-36); MEAN CORPUSCULAR VOLUME 99 fL (80-99); MEAN PLATELET VOLUME 10.4 fL (9.0-12.2); PLATELET COUNT 253 10^3/uL (130-400); WHITE BLOOD COUNT 7.8 10^3/uL (4.3-11.0)
[2020-10-07 06:02] LABS: POTASSIUM 3.4 MMOL/L (3.6-5.0)
[2020-10-07 06:03] LABS: CALCIUM 8.6 MG/DL (8.5-10.1)
[2020-10-07 06:07] LABS: CREATININE SERUM 0.62 MG/DL (0.60-1.30)
--- NOTE | 2020-10-07 06:51 | Progress Note - Hospitalist ---
Subjective HPI/CC On Admission Date Seen by Provider: Oct 07, 2020 Time Seen by Provider: 06:15 CC: GI bleed HPI: This is a [facility] patient who presented to the ER with several days of dark stools and severe dizziness and syncopal episode. She was found to have Hgb of 11, but high suspicion for upper GI bleed. Dr. Gipson will maintain supportive care and perform EGD. I know her from prior hospital stays. She denies any other significant issues. Subjective/Events-last exam Pt had an uneventful night EGD did not reveal a source of bleed Colon prep went well Colonoscopy will be done today Hgb 8.6 Slowed IV fluid down to 70 CCs per hour Potassium 3.4, giving 40 mEq IV over four hours Review of Systems General: Fatigue, Malaise Objective Exam Vital Signs Vital Signs Date Time Temp Pulse Resp B/P (MAP) Pulse Ox O2 Delivery O2 Flow Rate FiO2 10/08/20 04:00 90 18 128/77 (94) 94 Nasal Cannula 3.00 10/07/20 17:22 36.7 Capillary Refill : Less Than 3 Seconds General Appearance: No Apparent Distress, WD/WN, Chronically ill Respiratory: Lungs Clear, Normal Breath Sounds Cardiovascular: Regular Rate, Rhythm Neurologic/Psychiatric: Alert, Oriented x3 Results/Procedures Lab Patient resulted labs reviewed. Assessment/Plan Assessment and Plan Assess & Plan/Chief Complaint Assessment: Upper GI bleed Acute blood loss anemia Diabetes Hypertension Hyperlipidemia Plan: Dr. Gipson for scope Monitor closely for transfusion 10/05/2020: Supportive care Monitor hemoglobin Therapy 10/06/20: EGD today Monitor hgb 10/07/2020: Colonoscopy today Monitor closely Diagnosis/Problems Diagnosis/Problems (1) GI bleed Status: Acute Qualifiers: GI bleed type/associated pathology: unspecified gastrointestinal hemorrhage type Qualified Codes: K92.2 - Gastrointestinal hemorrhage, unspecified JESSICA SANTIAGO DO Oct 07, 2020 06:51
[2020-10-07] MEDS: POTASSIUM CL 10MEQ/50ML IVPB 50 ML IV SCH ×4 (10:13→15:25)
--- NOTE | 2020-10-07 11:57 | Physical Therapy Daily Note ---
PT Daily Note-Current Subjective Pt states "I already did my exercises in bed this morning." Pt denies pain. Agreeable to treatment. Pt states "Who ordered this therapy? I don't want to overdo. I am pretty sick." Mental Status Patient Orientation: Person, Place, Situation Transfers SCALE: Activities may be completed with or without assistive devices. 1-Yijslcnhlx-emtjxzm completes the activity by him/herself with no assistance from a helper. 5-Set-up or Clean-up Assistance-helper sets up or cleans up; patient completes activity. [place] assists only prior to or following the activity. 4-Supervision or Touching Assistance-helper provides verbal cues and/or touching/steadying and/or contact guard assistance as patient completes activity. Assistance may be provided throughout the activity or intermittently. 3-Partial/Moderate Assistance-helper does LESS THAN HALF the effort. [place] lifts, holds or supports trunk or limbs, but provides less than half the effort. 2-Substantial/Maximal Assistance-helper does MORE THAN HALF the effort. [place] lifts or holds trunk or limbs and provides more than half the effort. 7-Uepqpgxhx-srtmie does ALL the effort. Patient does none of the effort to complete the activity. Or, the assistance of 2 or more helpers is required for the patient to complete the activity. If activity was not attempted, code reason: 7-Patient Refused. 9-Not Applicable-not attempted and the patient did not perform the activity before the current illness, exacerbation or injury. 10-Not Attempted due to Environmental Limitations-(lack of equipment, weather restraints, etc.). 88-Not Attempted due to Medical Conditions or Safety Concerns. Bed mobility and transfers mod (I) Treatments Pt stood at bedside and walked in place with FWW for support x 90sec. Pt performed heel/raise x 10 reps. LAQ and AP x 10 reps each. Pt back to bed with O2 in situ and call light, all needs met. Assessment Current Status: Good Progress Pt abigail above well. Pt apprehensive about walking once she was up but agreeable to walking in place. Pt did very well with above ther ex and showing good mod (I) mobility throughout treatment. Pt back to bed with call light and all needs met. PT Assisted Goals Material Handler Goals PT Assisted Goals Time Frame: Oct 13, 2020 Roll Left & Right (QC): 6 Sit to Lying (QC): 6 Lying-Sitting on Side/Bed(QC): 6 Sit to Stand (QC): 6 Chair/Zbw-lm-Aeomr Xfer(QC): 6 Walk 10 feet (QC): 6 Walk 50ft with 2 Turns (QC): 6 PT Plan Treatment/Plan Treatment Plan: Continue Plan of Care Treatment Plan: Education, Functional Activity Zain, Functional Strength, Gait, Safety, Therapeutic Exercise, Transfers Treatment Duration: Oct 13, 2020 Frequency: 6 times per week Estimated Hrs Per Day: .25 hour per day Patient and/or Family Agrees t: Yes Time/GCodes Time In: 1110 Time Out: 1135 Total Billed Treatment Time: 25 Total Billed Treatment 1, ther ex x 15', FA x 10' PIEDAD ACOSTA CPTA Oct 07, 2020 11:57
[2020-10-07] MEDS ORDERED: MIDAZOLAM 2 MG/2 ML (VERSED) VIAL ONE (12:16)
[2020-10-07] MEDS ORDERED: proPOfol 200 MG/20 ML (DIPRIVAN) VIAL IV ONE ×2 (12:16→12:42)
--- NOTE | 2020-10-07 12:16 | Progress Note - Surgery ---
Subjective Date Seen by a Provider: Oct 07, 2020 Time Seen by a Provider: 12:14 Subjective/Events-last exam Patient did bowel prep yesterday without difficulty. No blood. Hgb up today. No new complaints. Denies n/v fever sweats chills shortness of breath or chest pain. Objective Exam Vital Signs Date Time Temp Pulse Resp B/P (MAP) Pulse Ox O2 Delivery O2 Flow Rate FiO2 10/07/20 11:40 36.9 82 20 140/64 (89) 94 Nasal Cannula 3.00 10/07/20 07:55 37.2 93 20 146/73 (97) 91 Nasal Cannula 3.00 10/07/20 04:00 77 18 140/70 (93) 94 Nasal Cannula 3.00 10/07/20 00:00 36.8 90 18 148/97 (114) 100 Nasal Cannula 3.00 10/06/20 21:00 94 Nasal Cannula 2.00 10/06/20 20:00 36.8 84 18 165/74 (104) 94 Nasal Cannula 3.00 10/06/20 16:00 36.8 84 24 159/93 (115) 96 Nasal Cannula 3.00 10/06/20 15:41 84 18 97 Room Air 10/06/20 13:00 37.0 85 20 95 Nasal Cannula 3.00 I & O 10/07/20 07:00 Intake Total 5570 ml Output Total 6400 ml Balance -830 ml Capillary Refill : Less Than 3 Seconds General Appearance: No Apparent Distress, WD/WN, Chronically ill HEENT: PERRL/EOMI, Normal ENT Inspection Neck: Normal Inspection, Non Tender Respiratory: Chest Non Tender, No Accessory Muscle Use, No Respiratory Distress Cardiovascular: Regular Rate, Rhythm Gastrointestinal: non tender, soft Extremity: Normal Inspection, Non Tender, No Calf Tenderness Neurologic/Psychiatric: Alert, Oriented x3 Skin: Normal Color, Warm/Dry Lymphatic: No Adenopathy Results Lab Laboratory Tests 10/06/20 12:43: Glucometer 94 10/06/20 17:48: Glucometer 125H 10/07/20 04:56: White Blood Count 7.8, Red Blood Count 2.73L, Hemoglobin 8.6L, Hematocrit 27L, Mean Corpuscular Volume 99, Mean Corpuscular Hemoglobin 32, Mean Corpuscular Hemoglobin Concent 32, Red Cell Distribution Width 13.6, Platelet Count 253, Mean Platelet Volume 10.4, Sodium Level 144, Potassium Level 3.4L, Chloride Level 106, Carbon Dioxide Level 30, Anion Gap 8, Blood Urea Nitrogen 2L, Creatinine 0.62, Estimat Glomerular Filtration Rate 96, BUN/Creatinine Ratio 3, Glucose Level 95, Calcium Level 8.6 10/07/20 10:15: Glucometer 90 Assessment/Plan Assessment/Plan Assessment/Plan Gastrointestinal bleed after colonoscopy. Long-term antiplatelet use. Anemia secondary to above hypokalemia-improved. EGD yesterday no active bleeding Hiatal hernia and slight gastritis. Prepped yesterday, colonoscopy today. Patient understands risks and benefits and wishes to proceed. YORDAN MORRISSEY DO Oct 07, 2020 12:16
[2020-10-07] MEDS ORDERED: NS IV 500 ML 500 ML ONE (12:20)
[2020-10-07] MEDS ORDERED: NS IV 500 ML 500 ML IV ONE (13:45)
[2020-10-07] MEDS: busPIRone 5 MG (BUSPAR) TAB PO SCH ×3 (13:54→20:49)
[2020-10-07] MEDS: GABAPENTIN 300 MG (NEURONTIN) CAP PO SCH ×3 (13:55→20:49)
[2020-10-07] MEDS: ASCORBIC ACID (VIT C) 500 MG TABLET PO SCH (13:55)
[2020-10-07] MEDS: polyethylene glycoL POWDER 17 GM (MIRALAX) PACK PO SCH (13:55)
[2020-10-07] MEDS: DULoxetine 30 MG (CYMBALTA) CAP PO SCH (13:56)
[2020-10-07] MEDS: OXYBUTYNIN (DITROPAN) 5 MG TAB PO SCH ×2 (13:56→20:49)
[2020-10-07] MEDS: ALLOPURINOL 100 MG (ZYLOPRIM) TAB PO SCH (13:56)
--- NOTE | 2020-10-07 15:44 | Progress Note-Post Operative ---
Post-Operative Progess Note Surgeon (s)/Phys Therapist (s) Surgeon YORDAN MORRISSEY DO Phys Therapist: na Pre-Operative Diagnosis gi bleed anemia Post-Operative Diagnosis ileocolonic polyp, polypectomy site bleed Procedure & Operative Findings Date of Procedure 10/07/20 Procedure Performed/Findings colonoscopy c hot bx polypectomy, placement of resolution clip Anesthesia Type per representative Estimated Blood Loss Estimated blood loss (mL): none Specimens/Packing Specimens Removed ileocolonic polyp YORDAN MORRISSEY DO Oct 07, 2020 15:44
[2020-10-07] MEDS: PANTOPRAZOLE DRIP 200 MG/NS 100 ML IV SCH ×2 (16:44)
[2020-10-07] MEDS: QUEtiapine 100 MG (SEROquel) TAB IMMEDIATE RELEASE PO SCH (20:49)
[2020-10-07] MEDS: traZODone 50 MG (DESYREL) TAB PO SCH (20:49)
[2020-10-08] VITALS (8 sets, daily range): BP systolic 100–161; BP diastolic 67–102
--- NOTE | 2020-10-08 06:15 | Progress Note - Surgery ---
Subjective Date Seen by a Provider: Oct 08, 2020 Time Seen by a Provider: 06:12 Subjective/Events-last exam Doing well. No more blood in stool. Tolerating liquids. Denies n/v fever sweats chills shortness of breath or chest pain. Objective Exam Vital Signs Date Time Temp Pulse Resp B/P (MAP) Pulse Ox O2 Delivery O2 Flow Rate FiO2 10/08/20 04:00 90 18 128/77 (94) 94 Nasal Cannula 3.00 10/08/20 00:00 88 18 149/86 (107) 91 Nasal Cannula 3.00 10/07/20 21:00 94 Nasal Cannula 2.00 10/07/20 20:00 82 150/96 (114) 97 Nasal Cannula 2.00 10/07/20 17:22 36.7 80 20 167/93 (117) 95 Nasal Cannula 2.00 10/07/20 13:10 74 16 98 Room Air 10/07/20 13:05 72 16 100 OxyMask 3 10/07/20 13:00 75 16 100 OxyMask 6 10/07/20 12:55 76 16 100 OxyMask 6 10/07/20 11:40 36.9 82 20 140/64 (89) 94 Nasal Cannula 3.00 10/07/20 08:41 Nasal Cannula 2.00 10/07/20 07:55 37.2 93 20 146/73 (97) 91 Nasal Cannula 3.00 I & O 10/08/20 07:00 Intake Total 900 ml Output Total 1500 ml Balance -600 ml Capillary Refill : Less Than 3 Seconds General Appearance: No Apparent Distress, WD/WN, Chronically ill HEENT: PERRL/EOMI, Normal ENT Inspection Neck: Normal Inspection, Non Tender Respiratory: Chest Non Tender, Normal Breath Sounds Cardiovascular: Regular Rate, Rhythm, No JVD Gastrointestinal: non tender, soft Extremity: Normal Inspection, Non Tender, No Calf Tenderness Neurologic/Psychiatric: Alert, Oriented x3 Skin: Normal Color, Warm/Dry Lymphatic: No Adenopathy Results Lab Laboratory Tests 10/07/20 10:15: Glucometer 90 10/07/20 17:17: Glucometer 112H 10/07/20 22:51: Glucometer 100 Assessment/Plan Assessment/Plan Assessment/Plan Gastrointestinal bleed after colonoscopy s/p placement of resolution clip and hot bx polypectomy was able to get ileocolonic polyp removed so do not need resection. Plan repeat scope in 1 year which we discussed and she understands. Long-term antiplatelet use. Anemia secondary to above hypokalemia-improved. EGD demonstrated no active bleeding Hiatal hernia and slight gastritis. Repeat labs this morning if remains stable advance diet and likely home. YORDAN MORRISSEY DO Oct 08, 2020 06:15
--- NOTE | 2020-10-08 06:50 | Progress Note - Hospitalist ---
Subjective HPI/CC On Admission Date Seen by Provider: Oct 08, 2020 Time Seen by Provider: 11:00 CC: GI bleed HPI: This is a [facility] patient who presented to the ER with several days of dark stools and severe dizziness and syncopal episode. She was found to have Hgb of 11, but high suspicion for upper GI bleed. Dr. Gipson will maintain supportive care and perform EGD. I know her from prior hospital stays. She denies any other significant issues. Subjective/Events-last exam Patient remained stable Feels pretty good but weak Does not require oxygen at home so will need home O2 evaluation PT and OT will see her tomorrow to be sure she is safe to go back to [facility] We will Hep-Lock her IV fluid and give Lasix 20 mg IV x1 now Transferring to fourth floor Review of Systems General: Fatigue Pulmonary: Dyspnea Neurological: Weakness Objective Exam Vital Signs Vital Signs Date Time Temp Pulse Resp B/P (MAP) Pulse Ox O2 Delivery O2 Flow Rate FiO2 10/09/20 03:15 36.4 88 18 111/69 (83) 91 Nasal Cannula 3.00 Capillary Refill : Less Than 3 Seconds General Appearance: No Apparent Distress, WD/WN, Chronically ill Respiratory: Lungs Clear, Normal Breath Sounds, Decreased Breath Sounds Cardiovascular: Regular Rate, Rhythm Neurologic/Psychiatric: Alert, Oriented x3 Results/Procedures Lab Laboratory Tests 10/08/20 06:59 Patient resulted labs reviewed. Assessment/Plan Assessment and Plan Assess & Plan/Chief Complaint Assessment: Upper GI bleed Acute blood loss anemia Diabetes Hypertension Hyperlipidemia Plan: Dr. Gipson for scope Monitor closely for transfusion 10/05/2020: Supportive care Monitor hemoglobin Therapy 10/06/20: EGD today Monitor hgb 10/07/2020: Colonoscopy today Monitor closely 10/08/2020: Hep-Lock fluid Lasix Transfer to fourth Home O2 evaluation Diagnosis/Problems Diagnosis/Problems (1) GI bleed Status: Acute Qualifiers: GI bleed type/associated pathology: unspecified gastrointestinal hemorrhage type Qualified Codes: K92.2 - Gastrointestinal hemorrhage, unspecified JESSICA SANTIAGO DO Oct 08, 2020 06:50
[2020-10-08 07:09] LABS: HEMATOCRIT 27 % (35-52); HEMOGLOBIN 8.3 g/dL (11.5-16.0); MEAN CORPUSCULAR HEMOGLOBIN 31 pg (25-34); MEAN CORPUSCULAR HGB CONC 31 g/dL (32-36); MEAN CORPUSCULAR VOLUME 100 fL (80-99); MEAN PLATELET VOLUME 9.6 fL (9.0-12.2); PLATELET COUNT 256 10^3/uL (130-400); WHITE BLOOD COUNT 7.7 10^3/uL (4.3-11.0)
[2020-10-08 07:19] LABS: CHLORIDE 107 MMOL/L (98-107); POTASSIUM 3.5 MMOL/L (3.6-5.0); SODIUM 144 MMOL/L (135-145)
[2020-10-08 07:20] LABS: CALCIUM 8.3 MG/DL (8.5-10.1)
[2020-10-08 07:21] LABS: GLUCOSE 98 MG/DL (70-105)
[2020-10-08 07:22] LABS: CARBON DIOXIDE 28 MMOL/L (21-32)
[2020-10-08 07:25] LABS: GFR ESTIMATED 99
[2020-10-08 07:26] LABS: BUN/CREATININE RATIO 3
[2020-10-08] MEDS: DULoxetine 30 MG (CYMBALTA) CAP PO SCH (08:49)
[2020-10-08] MEDS: ALLOPURINOL 100 MG (ZYLOPRIM) TAB PO SCH (08:49)
[2020-10-08] MEDS: polyethylene glycoL POWDER 17 GM (MIRALAX) PACK PO SCH (08:49)
[2020-10-08] MEDS: busPIRone 5 MG (BUSPAR) TAB PO SCH ×3 (08:50→20:02)
[2020-10-08] MEDS: ASCORBIC ACID (VIT C) 500 MG TABLET PO SCH (08:50)
[2020-10-08] MEDS: OXYBUTYNIN (DITROPAN) 5 MG TAB PO SCH ×2 (08:50→20:02)
[2020-10-08] MEDS: GABAPENTIN 300 MG (NEURONTIN) CAP PO SCH ×3 (08:50→20:02)
[2020-10-08] MEDS ORDERED: CALCIUM CARBONATE 500 MG (TUMS) TAB.CHEW PO PRN (12:00)
[2020-10-08] MEDS ORDERED: MELATONIN 3 MG TABLET PO PRN (12:00)
[2020-10-08] MEDS ORDERED: SUCRALFATE 1 GM (CARAFATE) TAB PO ONE (12:00)
[2020-10-08] MEDS ORDERED: ACETAMINOPHEN 325 MG TABLET PO PRN (12:00)
[2020-10-08] MEDS ORDERED: FUROSEMIDE 40 MG/4 ML INJ (LASIX) IVP ONE (12:15)
[2020-10-08] MEDS: SUCRALFATE 1 GM (CARAFATE) TAB PO SCH ×2 (16:01→20:02)
[2020-10-08] MEDS: PANTOPRAZOLE 40 MG (PROTONIX) TAB PO SCH (16:01)
[2020-10-08] MEDS: traZODone 50 MG (DESYREL) TAB PO SCH (20:02)
[2020-10-08] MEDS: QUEtiapine 100 MG (SEROquel) TAB IMMEDIATE RELEASE PO SCH (20:02)
[2020-10-09 03:15] VITALS: BP 111/69
[2020-10-09] MEDS: PANTOPRAZOLE 40 MG (PROTONIX) TAB PO SCH ×2 (05:22→15:22)
[2020-10-09] MEDS: SUCRALFATE 1 GM (CARAFATE) TAB PO SCH ×3 (05:23→15:22)
[2020-10-09 06:08] LABS: HEMATOCRIT 26 % (35-52); HEMOGLOBIN 8.3 g/dL (11.5-16.0); MEAN CORPUSCULAR HEMOGLOBIN 32 pg (25-34); MEAN CORPUSCULAR HGB CONC 31 g/dL (32-36); MEAN CORPUSCULAR VOLUME 101 fL (80-99); MEAN PLATELET VOLUME 10.1 fL (9.0-12.2); PLATELET COUNT 258 10^3/uL (130-400); WHITE BLOOD COUNT 9.2 10^3/uL (4.3-11.0)
[2020-10-09 06:39] LABS: ALBUMIN 3.1 GM/DL (3.2-4.5); BILIRUBIN,TOTAL 0.4 MG/DL (0.1-1.0); CALCIUM 8.3 MG/DL (8.5-10.1); CREATININE SERUM 0.64 MG/DL (0.60-1.30); POTASSIUM 3.4 MMOL/L (3.6-5.0); TOTAL PROTEIN 5.8 GM/DL (6.4-8.2)
[2020-10-09] MEDS: RT-ALBUTEROL SULF 2.5 MG/3 ML PRE-MIX VIAL IH SCH (07:11)
[2020-10-09 07:30] VITALS: BP 128/77
[2020-10-09] MEDS: polyethylene glycoL POWDER 17 GM (MIRALAX) PACK PO SCH (08:12)
[2020-10-09] MEDS: busPIRone 5 MG (BUSPAR) TAB PO SCH ×2 (08:13→12:30)
[2020-10-09] MEDS: ALLOPURINOL 100 MG (ZYLOPRIM) TAB PO SCH (08:13)
[2020-10-09] MEDS: DULoxetine 30 MG (CYMBALTA) CAP PO SCH (08:13)
[2020-10-09] MEDS: ASCORBIC ACID (VIT C) 500 MG TABLET PO SCH (08:13)
[2020-10-09] MEDS: GABAPENTIN 300 MG (NEURONTIN) CAP PO SCH ×2 (08:13→12:30)
[2020-10-09] MEDS: OXYBUTYNIN (DITROPAN) 5 MG TAB PO SCH (08:13)
[2020-10-09] MEDS ORDERED: SUCR1TAB PO (09:42)
[2020-10-09] MEDS ORDERED: AMLO-251 PO (09:42)
[2020-10-09] MEDS ORDERED: PANT40TA52 PO (09:42)
[2020-10-09] MEDS ORDERED: LOSA50TA63 PO (09:42)
--- NOTE | 2020-10-09 09:43 | D/C HH Face to Face Order ---
D/C Face to Face Orders Reconcile Patient Problems Problems Reviewed?: Yes Instructions for Patient Via [facility], Patient Instructions/FollowUp: Dr Ernst/An Conrad in 1 week Physician to follow Patient: Sujata Discharge Diet for Home: ADA Diet Patient Problems: Anemia GIB Patient Data-Allergies,Ht & Wt Patient Allergies: Coded Allergies: Penicillins (Verified Allergy, Mild, RASH, 05/07/18) Height (Feet): 5 Height (Inches): 7.50 Weight (Pounds): 229 Weight (Ounces): 8.0 Home Health Need/Face to Face Date of Face to Face: Oct 09, 2020 Clinical Findings: Generalized weakness and fatigue, Instability, Muscle weakness I have seen Pt [id number]: Yes Discharged To: Home Diagnosis/Conditions: Anemia Patient is Homebound due to: Colt fall risk due to instabilty, Muscle weakness Homebound Status Due to the above stated illness, injury or surgical procedure (medical condition or diagnosis) and associated clinical findings, the patient is homebound because of his/her inability to leave home except with aid of a supportive device and/or person AND leaving the home requires a considerable and taxing effort or is medically contraindicated. Pt req the following assistanc: Walker Home Health Nursing Orders Home Health Services Order: Web Portal Developer-Evaluate & Treat, Physical Therapy-Evaluate & Treat Home Health Infusion Therapy Line Start Date: Oct 04, 2020 Certify Stmt I certify that this patient is under my care and that I, a nurse practitioner or a physician; a sociology research assistant working with me, had a face to face encounter that - meets the physician face to face encounter requirements with this patient as dated. JESSICA ERNST DO Oct 09, 2020 09:43
--- NOTE | 2020-10-09 09:44 | Discharge Summary ---
Discharge Summary Hospital Course Was the Problem List Reviewed?: Yes Problems/Dx: (1) GI bleed Status: Acute Qualifiers: Qualified Codes: K92.2 - Gastrointestinal hemorrhage, unspecified Hospital Course Date of Admission: Oct 04, 2020 at 12:40 Admission Diagnosis : Family Physician/Provider: Ilsa Conteh Date of Discharge: 10/09/20 Discharge Diagnosis: GI bleed, large colon polyp, hypoxia requiring home oxygen Hospital Course: Hospital Course: Pt had an uneventful hospital course although it was lengthy for six days after she presented to the ER with near syncopal episode and dizziness found to have a GI bleed. Pt ultimately decreased hgb significantly. EGD was performed, no evidence of anything but mild gastritis, placed on proton pump inhibitor Carafate and pt underwent colonoscopy showing polyp that was bleeding and managed endoscopically. She will need a colonoscopy in one year. She needed home O2 at 3 liters continuous and that was ordered. Pt was up and around. I did order home health of PT and OT and she returned to [facility] in improved condition. Labs and Pending Lab Test: Laboratory Tests 10/08/20 10:15: Glucometer 159H 10/08/20 15:55: Glucometer 119H 10/08/20 20:07: Glucometer 173H 10/09/20 05:22: Glucometer 99 10/09/20 05:40: White Blood Count 9.2, Red Blood Count 2.62L, Hemoglobin 8.3L, Hematocrit 26L, Mean Corpuscular Volume 101H, Mean Corpuscular Hemoglobin 32, Mean Corpuscular Hemoglobin Concent 31L, Red Cell Distribution Width 14.2, Platelet Count 258, Mean Platelet Volume 10.1, Sodium Level 141, Potassium Level 3.4L, Chloride Level 105, Carbon Dioxide Level 26, Anion Gap 10, Blood Urea Nitrogen 5L, Creatinine 0.64, Estimat Glomerular Filtration Rate 92, BUN/Creatinine Ratio 8, Glucose Level 100, Calcium Level 8.3L, Corrected Calcium 9.0, Total Bilirubin 0.4, Aspartate Amino Transf (AST/SGOT) 20, Alanine Aminotransferase (ALT/SGPT) 25, Alkaline Phosphatase 58, Total Protein 5.8L, Albumin 3.1L Home Meds Active Pantoprazole Sodium 40 Mg Tablet.dr 40 Mg PO BIDAC 30 Days Sucralfate 1 Gm Tablet 1 Gm PO ACHS 30 Days Losartan Potassium 50 Mg Tablet 50 Mg PO DAILY 30 Days Hold for SBP less than 130 Amlodipine Besylate 10 Mg Tablet 10 Mg PO DAILY 30 Days Hold for SBP less than 130 Reported Aspirin EC (Aspirin) 81 Mg Tablet.dr 81 Mg PO DAILY Trazodone HCl 50 Mg Tablet 50 Mg PO HS Salonpas Patch (Methyl Salicylate/Menthol) 1 Each Adh..patch 1 Each TP BID Blink Tears (Polyethylene Glycol 400) 15 Ml Drops 2 Drops OU QID PRN Albuterol Sulfate 2.5 Mg/3 Ml Vial.neb 2.5 Ml NEB TID Ozempic (Semaglutide) 1 Mg/0.75 Ml Pen.injctr 1 Mg INJ FRI Atorvastatin Calcium 40 Mg Tablet 40 Mg PO HS Neurontin (Gabapentin) 300 Mg Capsule 600 Mg PO TID TAKES 2 (300MG) CAPS Diclofenac Sodium 100 Gm Gel..gram. 1 Applic TOP BID PRN Vitamin C (Ascorbate Calcium) 500 Mg Tablet 500 Mg PO DAILY Duloxetine HCl 30 Mg Capsule.dr 60 Mg PO DAILY TAKES 2 (30MG) CAPS Naproxen 500 Mg Tablet 500 Mg PO DAILY PRN Senna Laxative (Sennosides) 8.6 Mg Tablet 17.2 Mg PO HS PRN TAKES 2 (8.6MG) TABS Quetiapine Fumarate 100 Mg Tablet 100 Mg PO HS Polyethylene Glycol 3350 17 Gm Powd.pack 17 Gm PO DAILY Oxybutynin Chloride ER (Oxybutynin Chloride) 5 Mg Tab.er.24 5 Mg PO DAILY Omeprazole 40 Mg Capsule.dr 40 Mg PO DAILY Hydrochlorothiazide 12.5 Mg Tablet 12.5 Mg PO DAILY Farxiga (Dapagliflozin Propanediol) 5 Mg Tablet 5 Mg PO DAILY Cyclobenzaprine HCl 5 Mg Tablet 5 Mg PO TID PRN Buspirone HCl 5 Mg Tablet 5 Mg PO TID Lantus Solostar (Insulin Glargine,Hum.rec.anlog) 100 Unit/1 Ml Insuln.pen 10 Units SQ HS Potassium Chloride 10 Meq Capsule.er 10 Meq PO BID Metformin HCl 1,000 Mg Tablet 1,000 Mg PO BID Allopurinol 100 Mg Tablet 100 Mg PO DAILY Assessment/Pt Instructions Dr. Ernst in 1 week Discharge Planning: <30 minutes discharge planning Discharge Instructions Discharge Diet: No Restrictions Activity as Tolerated: Yes Discharge Physical Examination Vital Signs Vital Signs Date Time Temp Pulse Resp B/P (MAP) Pulse Ox O2 Delivery O2 Flow Rate FiO2 10/09/20 07:30 37.2 98 18 128/77 (94) 89 Nasal Cannula 4.00 General Appearance: No Apparent Distress, WD/WN, Chronically ill Respiratory: Lungs Clear Neurologic/Psychiatric: Alert, Oriented x3, No Motor/Sensory Deficits, Normal Mood/Affect Allergies: Coded Allergies: Penicillins (Verified Allergy, Mild, RASH, 05/07/18) Discharge Summary Date of Admission Oct 04, 2020 at 12:40 Date of Discharge Discharge Date: Oct 09, 2020 Discharge Diagnosis Assessment: Upper GI bleed Acute blood loss anemia Diabetes Hypertension Hyperlipidemia Plan: Dr. Gipson for scope Monitor closely for transfusion 10/05/2020: Supportive care Monitor hemoglobin Therapy 10/06/20: EGD today Monitor hgb 10/07/2020: Colonoscopy today Monitor closely 10/08/2020: Hep-Lock fluid Lasix Transfer to fourth Home O2 evaluation (1) GI bleed Status: Acute Qualifiers: Qualified Codes: K92.2 - Gastrointestinal hemorrhage, unspecified JESSICA ERNST DO Oct 09, 2020 09:44
[2020-10-09] MEDS ORDERED: KCL 20 MEQ TAB (K-DUR) PO ONE (09:45)
[2020-10-09 11:15] VITALS: BP 148/69
--- NOTE | 2020-10-09 14:02 | Progress Note - Surgery ---
Subjective Date Seen by a Provider: Oct 09, 2020 Time Seen by a Provider: 12:00 Subjective/Events-last exam Doing well. Tolerating diet. No blood in bm. Hgb stable. Using O2. Denies n/v fever sweats chills shortness of breath or chest pain at this time. Objective Exam Vital Signs Date Time Temp Pulse Resp B/P (MAP) Pulse Ox O2 Delivery O2 Flow Rate FiO2 10/09/20 11:15 36.7 106 16 148/69 (95) 91 Nasal Cannula 4.00 10/09/20 09:00 92 Nasal Cannula 3.00 10/09/20 07:30 37.2 98 18 128/77 (94) 89 Nasal Cannula 4.00 10/09/20 07:12 92 Nasal Cannula 3.00 10/09/20 03:15 36.4 88 18 111/69 (83) 91 Nasal Cannula 3.00 10/08/20 23:04 36.6 91 16 100/67 (78) 94 Nasal Cannula 3.00 10/08/20 20:21 94 Nasal Cannula 3.00 10/08/20 20:00 90 161/90 (113) 93 Nasal Cannula 3.00 10/08/20 19:37 37.7 93 18 149/93 (111) 91 Nasal Cannula 3.00 10/08/20 16:25 101 91 3.00 86 10/08/20 16:00 36.8 87 18 159/102 (121) 91 Nasal Cannula 3.00 I & O 10/09/20 07:00 Intake Total 3340 ml Output Total 6000 ml Balance -2660 ml Capillary Refill : Less Than 3 Seconds General Appearance: No Apparent Distress, WD/WN, Chronically ill HEENT: PERRL/EOMI, Normal ENT Inspection Neck: Normal Inspection, Non Tender Respiratory: Chest Non Tender, No Accessory Muscle Use, No Respiratory Distress, Decreased Breath Sounds Cardiovascular: Regular Rate, Rhythm, No JVD Gastrointestinal: non tender, soft Extremity: Normal Inspection, Non Tender, No Calf Tenderness Neurologic/Psychiatric: Alert, Oriented x3 Skin: Normal Color, Warm/Dry Lymphatic: No Adenopathy Results Lab Laboratory Tests 10/08/20 15:55: Glucometer 119H 10/08/20 20:07: Glucometer 173H 10/09/20 05:22: Glucometer 99 10/09/20 05:40: White Blood Count 9.2, Red Blood Count 2.62L, Hemoglobin 8.3L, Hematocrit 26L, Mean Corpuscular Volume 101H, Mean Corpuscular Hemoglobin 32, Mean Corpuscular Hemoglobin Concent 31L, Red Cell Distribution Width 14.2, Platelet Count 258, Mean Platelet Volume 10.1, Sodium Level 141, Potassium Level 3.4L, Chloride Level 105, Carbon Dioxide Level 26, Anion Gap 10, Blood Urea Nitrogen 5L, Creatinine 0.64, Estimat Glomerular Filtration Rate 92, BUN/Creatinine Ratio 8, Glucose Level 100, Calcium Level 8.3L, Corrected Calcium 9.0, Total Bilirubin 0.4, Aspartate Amino Transf (AST/SGOT) 20, Alanine Aminotransferase (ALT/SGPT) 25, Alkaline Phosphatase 58, Total Protein 5.8L, Albumin 3.1L 10/09/20 11:08: Glucometer 137H Assessment/Plan Assessment/Plan Assessment/Plan Gastrointestinal bleed after colonoscopy s/p placement of resolution clip and hot bx polypectomy was able to get ileocolonic polyp removed so do not need resection. Plan repeat scope in 1 year which we discussed and she understands. Long-term antiplatelet use. Anemia secondary to above hypokalemia-improved. EGD demonstrated no active bleeding Hiatal hernia and slight gastritis. Hgb stable- okay to mo home follow up in 2 weeks. YORDAN MORRISSEY DO Oct 09, 2020 14:02
--- NOTE | 2020-10-09 16:55 | OPERATIVE REPORT ---
DATE OF SERVICE: 10/07/2020 PREOPERATIVE DIAGNOSES: Gastrointestinal bleed, anemia. POSTOPERATIVE DIAGNOSES: Ileocolonic colon polyp and bleed at previous polypectomy site. PROCEDURE: Colonoscopy with hot biopsy polypectomy and placement of Resolution Clip. SURGEON: Yordan Gipson DO ANESTHESIA: Per ELECTRICAL SIGN SERVICER. ESTIMATED BLOOD LOSS: None. COMPLICATIONS: None. INDICATIONS: The patient is a 70-year-old female who had previous colonoscopy with hot biopsy polypectomies. She returned for gastrointestinal bleed. She had a normal EGD. The patient was prepped for colonoscopy. She understands risks and benefits of procedure and wished to proceed with procedure. Consent was signed in the chart. DESCRIPTION OF PROCEDURE: The patient was taken to the endoscopy suite, placed in left lateral recumbent position. Timeout was performed. Digital rectal exam was performed. No palpable polyps, masses or ulcerations. Scope was inserted in the rectum, advanced all the way to the ileocolonic anastomosis. The patient was noted to have difficult to visualize questionable ileocolonic mass. This was able to be visualized with retroflexion this time to where this was an ileocolonic polyp that was more diverticulum, which I was able to be grasp and hot biopsy polypectomy was performed. The scope was then returned to its normal position. A site of a previous polypectomy present here was still bleeding. Cautery was used to try to get it to stop; however small slight ooze. Cautery was not able to be successful. Therefore, Resolution Clip was then deployed achieving hemostasis. The scope was then slowly retracted back. No polyps, masses or ulcerations within the remainder from the ileocolonic anastomosis all the way down to the rectum where the scope was also retroflexed noting no other pathology. Scope was returned to its normal position, slowly withdrawn until completely removed. The patient tolerated procedure well without any complications. She was taken to recovery room in stable condition. We will start on clears. Follow hemoglobin. Job ID: [id number] DocumentID: [id number] Dictated Date: 10/07/2020 16:44:00 Paper Machine Operator Date: 10/07/2020 20:55:50 Dictated By: YORDAN GIPSON DO [facility]
== END 2020-10-09 15:37 | disposition home or self-care (01) ==
LOC: ER 11:31 → EDUNIT# 11:36 → 4TH 12:40 → UNDOADMOB 12:40 → 4TH 13:06 → CSD 13:06 → SDC 14:23 → CSD 14:23 → 4TH 14:23 → CSD 15:20 → ICU 10-05 16:32 → CSD 10-05 16:32 → UNDODISOB 10-09 15:37 → SDC 10-09 15:37
PROVIDERS: ATTEND Surgery
DX: K92.1 Melena (principal); K29.71 Gastritis, unspecified, with bleeding; K63.5 Polyp of colon; K21.9 Gastro-esophageal reflux disease without esophagitis; K57.30 Diverticulosis of large intestine without perforation or abscess without bleeding; D63.8 Anemia in other chronic diseases classified elsewhere; I95.9 Hypotension, unspecified; I10 Essential (primary) hypertension; D62 Acute posthemorrhagic anemia; K44.9 Diaphragmatic hernia without obstruction or gangrene; E87.6 Hypokalemia; J43.9 Emphysema, unspecified; E78.00 Pure hypercholesterolemia, unspecified; K59.09 Other constipation; M19.90 Unspecified osteoarthritis, unspecified site; G89.29 Other chronic pain; M54.9 Dorsalgia, unspecified; E11.42 Type 2 diabetes mellitus with diabetic polyneuropathy; F32.9 Major depressive disorder, single episode, unspecified; F41.9 Anxiety disorder, unspecified; Z79.4 Long term (current) use of insulin; Z79.899 Other long term (current) drug therapy; Z79.82 Long term (current) use of aspirin; Z90.89 Acquired absence of other organs; Z85.038 Personal history of other malignant neoplasm of large intestine
CPT/HCPCS: 43235; 45384; 74018; 80048 ×2; 80053 ×4; 82947 ×6; 83735; 85007; 85014; 85018; 85025 ×2; 85027 ×4; 86141; 86850; 86900; 86901; 86920; 87636; 88305; 94640 ×4; 94761; 96361; 96374; 97110; 97162; 97165; 97530; 99282; G0378; 36415

== ENCOUNTER 2022-02-13 17:19 | Emergency (ER) | payer MEDICARE, MEDICAID ==
[~2022-02-13] VITALS: Ht 171 cm; Wt 97.0 kg
[~2022-02-13 17:19] MED LIST changes: +ALBU2.5V4 NEB; +ASCO-262 PO; +ASPI-1238 PO; +ATOR40TA70 PO; +DICL100G13 TOP; +DULO30CA49 PO; +FLUC100T10 PO; -FLUC100T6 PO; +GABA300C PO; +METH1ADH15 TP; +NAPR-915 PO; +PANT40TA52 PO; +QUET100T33 PO; +SEMA1PEN INJ; +SENN8.6T17 PO; +SUCR1TAB PO; +TRZ50T PO; +[UNRECOGNIZED DRUG - CODE] OU
[2022-02-13 17:20] VITALS: BP 118/76
--- NOTE | 2022-02-13 18:04 | ED Fall/Injury ---
General Chief Complaint: Trauma-Non Activation Stated Complaint: FALL Nursing Triage Note: ARRIVED VIA EMS FROM [facility] AFTER TRIPPING OVER [employer] AND LANDING ON HER REPLACED RIGHT KNEE . PT ALSO HIT HER CHIN ON THE WINDOW SEAL DURING THE FALL. DENIES HEAD/NECK PAIN OR LOC. PT WEARS OXYGEN NEEDED AT THE HALF-WAY. Source: patient Exam Limitations: no limitations History of Present Illness Date Seen by Provider: Feb 13, 2022 Time Seen by Provider: 18:02 Initial Comments To ER by EMS from retirement. She tripped and fell landing on a right knee which has been replaced several years ago. She did hit the bottom of her chin on the windowsill. No loss of consciousness no neck pain. Occurred: just prior to arrival Severity: moderate Injuries/Pain Location: lower extremity Context: unknown Loss of Consciousness: no loss of consciousness Associated Symptoms (Fall): Denies Symptoms Allergies and Home Medications Allergies Coded Allergies: Penicillins (Verified Allergy, Mild, RASH, 05/07/18) Patient Home Medication List Home Medication List Reviewed: Yes Albuterol Sulfate (Albuterol Sulfate) 2.5 Mg/3 Ml Vial.neb, 2.5 ML NEB TID, (Reported) Entered as Reported by: PEDRO LUIS BOWMAN on 10/04/20 1501 Allopurinol (Allopurinol) 100 Mg Tablet, 100 MG PO DAILY, (Reported) Entered as Reported by: ELADIO LANCASTER on 01/04/16 1430 Amlodipine Besylate (Amlodipine Besylate) 10 Mg Tablet, 10 MG PO DAILY Prescribed by: JESSICA SANTIAGO on 10/09/20 0942 Ascorbate Calcium (Vitamin C) 500 Mg Tablet, 500 MG PO DAILY, (Reported) Entered as Reported by: PEDRO LUIS BOWMAN on 10/04/20 1501 Aspirin (Aspirin EC) 81 Mg Tablet.dr, 81 MG PO DAILY, (Reported) Entered as Reported by: PEDRO LUIS BOWMAN on 10/04/20 1501 Atorvastatin Calcium (Atorvastatin Calcium) 40 Mg Tablet, 40 MG PO HS, (Reported) Entered as Reported by: PEDRO LUIS BOWMAN on 10/04/20 1501 Buspirone HCl (Buspirone HCl) 5 Mg Tablet, 5 MG PO TID, (Reported) Entered as Reported by: KAPIL ROSENTHAL on 09/19/20 1140 Cyclobenzaprine HCl (Cyclobenzaprine HCl) 5 Mg Tablet, 5 MG PO TID PRN for MUSCLE SPASMS, (Reported) Entered as Reported by: KAPIL ROSENTHAL on 09/19/20 1140 Diclofenac Sodium (Diclofenac Sodium) 100 Gm Gel..gram., 1 APPLIC TOP BID PRN f or PAIN-BREAKTHROUGH, (Reported) Entered as Reported by: PEDRO LUIS BOWMAN on 10/04/20 1501 Duloxetine HCl (Duloxetine HCl) 30 Mg Capsule.dr, 60 MG PO DAILY, (Reported) Entered as Reported by: PEDRO LUIS BOWMAN on 10/04/20 1501 Gabapentin (Neurontin) 300 Mg Capsule, 600 MG PO TID, (Reported) Entered as Reported by: PEDRO LUIS BOWMAN on 10/04/20 1501 Insulin Glargine,Hum.rec.anlog (Lantus Solostar) 100 Unit/1 Ml Insuln.pen, 10 UNITS SQ HS, (Reported) Entered as Reported by: MICHELLE RAWLS on 01/16/16 0838 Losartan Potassium (Losartan Potassium) 50 Mg Tablet, 50 MG PO DAILY Prescribed by: JESSICA SANTIAGO on 10/09/20 0942 Metformin HCl (Metformin HCl) 1,000 Mg Tablet, 1,000 MG PO BID, (Reported) Entered as Reported by: ELADIO LANCASTER on 01/04/16 1430 Methyl Salicylate/Menthol (Salonpas Patch) 1 Each Adh..patch, 1 EACH TP BID, (Reported) Entered as Reported by: PEDRO LUIS BOWMAN on 10/04/20 1501 Oxybutynin Chloride (Oxybutynin Chloride ER) 5 Mg Tab.er.24, 5 MG PO DAILY, (Reported) Entered as Reported by: KAPIL ROSENTHAL on 09/19/20 1140 Pantoprazole Sodium (Pantoprazole Sodium) 40 Mg Tablet.dr, 40 MG PO BIDAC Prescribed by: JESSICA SANTIAGO on 10/09/20 0942 Polyethylene Glycol 3350 (Polyethylene Glycol 3350) 17 Gm Powd.pack, 17 GM PO DAILY, (Reported) Entered as Reported by: KAPIL ROSENTHAL on 09/19/20 1140 Polyethylene Glycol 400 (Blink Tears) 15 Ml Drops, 2 DROPS OU QID PRN for DRY EYES, (Reported) Entered as Reported by: PEDRO LUIS BOWMAN on 10/04/20 1501 Quetiapine Fumarate (Quetiapine Fumarate) 100 Mg Tablet, 100 MG PO HS, (Reported) Entered as Reported by: PEDRO LUIS BOWMAN on 10/04/20 1501 Semaglutide (Ozempic) 1 Mg/0.75 Ml Pen.injctr, 1 MG INJ FRI, (Reported) Entered as Reported by: PEDRO LUIS BOWMAN on 10/04/20 1501 Sennosides (Senna Laxative) 8.6 Mg Tablet, 17.2 MG PO HS PRN for CONSTIPATION- 5TH LINE, (Reported) Entered as Reported by: PEDRO LUIS BOWMAN on 10/04/20 1501 Sucralfate (Sucralfate) 1 Gm Tablet, 1 GM PO ACHS Prescribed by: JESSICA SANTIAGO on 10/09/20 0942 Trazodone HCl (Trazodone HCl) 50 Mg Tablet, 50 MG PO HS, (Reported) Entered as Reported by: PEDRO LUIS BOWMAN on 10/04/20 1501 Review of Systems Review of Systems Constitutional: see HPI Eyes: No Symptoms Reported Ears, Nose, Mouth, Throat: no symptoms reported Respiratory: no symptoms reported Cardiovascular: no symptoms reported Genitourinary: no symptoms reported Musculoskeletal: see HPI Skin: no symptoms reported Psychiatric/Neurological: No Symptoms Reported Past Ocbqhhp-Wnmgdn-Spighy Hx Patient Social History Smoking Status: Former Smoker Substance use?: No Alcohol Use?: No Immunizations Up To Date Tetanus Booster (TDap): Unknown Seasonal Allergies Seasonal Allergies: Yes Past Medical History Surgery/Hospitalization HX: sx: appy, colonoscopy with polyp removal, colon resection. pmh: dm, gout, htn, gerd, overactive bladder, depression, anxiety, edema, copd, high chol. Surgeries: Yes (POLYPS, HIATAL HERNIA REPAIR, R TKR, COLECTOMY) Appendectomy Respiratory: Yes COPD, Emphysema Cardiac: Yes High Cholesterol, Hypertension Neurological: Yes Neuropathy Reproductive Disorders: No Sexually Transmitted Disease: No HIV/AIDS: No Genitourinary: No Gastrointestinal: Yes Gastroesophageal Reflux, Chronic Constipation, Chronic Diarrhea, Polyps Musculoskeletal: Yes Degenerate Disk Disease, Arthritis, Chronic Back Pain Endocrine: Yes Diabetes, Insulin dep HEENT: Yes (GLASSES, DENTURES) Loss of Vision: Bilateral Hearing Impairment: Denies Cancer: Yes Colon Did You Recieve Any Treatments: Yes What Type of Treatment Did You: Surgical Intervention Psychosocial: Yes Anxiety, Depression Integumentary: No Blood Disorders: No Adverse Reaction/Blood Tranf: No (N/A) Family Medical History BONE CANCER 19 FATHER BRAIN ANEURYSM 19 MOTHER No Pertinent Family Hx Physical Exam Vital Signs Vital Signs - First Documented 02/13/22 17:20 Temp 36.2 Pulse 93 Resp 16 B/P (MAP) 118/76 (90) Pulse Ox 91 O2 Delivery Room Air O2 Flow Rate 2.00 Capillary Refill : Less Than 3 Seconds Height, Weight, BMI Height: 5'7.50" Weight: 229lbs. 8.0oz. 104.280497ox; 33.00 BMI Method: General Appearance: WD/WN, no apparent distress Neck: non-tender, full range of motion Respiratory: no respiratory distress, no accessory muscle use Extremities: normal range of motion, non-tender, normal capillary refill Neurologic/Psychiatric: alert, normal mood/affect, oriented x 3 Skin: normal color, warm/dry Progress/Results/Core Measures Results/Orders My Orders Orders - CAROLYNN FLOWER APRN Ct Head/Cervical Spine Wo (02/13/22 17:39) Knee, Right, 3 Views (02/13/22 17:39) Vital Signs/I&O 02/13/22 02/13/22 17:20 17:20 Temp 36.2 Pulse 93 Resp 16 B/P (MAP) 118/76 (90) Pulse Ox 91 O2 Delivery Room Air Nasal Cannula O2 Flow Rate 2.00 Blood Pressure Mean: 90 Departure Impression Primary Impression: Knee contusion Additional Impression: Fall Disposition: 01 HOME, SELF-CARE Condition: Stable Departure-Patient Inst. Decision time for Depature: 18:33 Referrals: [facility]/ (PCP) Primary Care Physician DEVYN ARANA (Family) Primary Care Physician Patient Instructions: Contusion (DC), Preventing Falls ED Add. Discharge Instructions: 1. Ice pack to the knee. Return to ER for any concerns. Follow-up with your doctor next week. All discharge instructions reviewed with patient and/or family. Voiced understanding. CAROLYNN FLOWER APRN Feb 13, 2022 18:04
--- NOTE | 2022-02-13 18:06 | Diagnostic Imaging Report ---
INDICATION: Fall, pain. EXAMINATION: Right knee, 02/13/2022. FINDINGS: Three views of the knee. There is a total knee arthroplasty which appears intact and well aligned. No fractures or dislocations appreciated. Soft tissues are grossly unremarkable. IMPRESSION: 1. No acute process. Dictated by: Dictated on workstation # [id number]
--- NOTE | 2022-02-13 18:28 | Diagnostic Imaging Report ---
PROCEDURE: CT head and CT cervical spine without contrast. TECHNIQUE: Multiple contiguous axial images were obtained through the brain and cervical spine without the use of intravenous contrast. Sagittal and coronal reformations through the cervical spine were then performed. Auto Exposure Controls were utilized during the CT exam to meet ALARA standards for radiation dose reduction. INDICATION: Fall. Head and neck pain. COMPARISON: None. FINDINGS: CT head: No large acute territorial ischemia, mass, or hemorrhage. No midline shift or mass effect. Decreased attenuation is seen in the periventricular and subcortical white matter. The ventricles and cortical sulci are symmetric. The basilar cisterns are patent and unremarkable. The calvarium is intact. The visualized paranasal sinuses are clear. CT cervical spine: No acute fracture or dislocation is seen in the cervical spine. No focal osseous lesions. Vertebral body heights are well-maintained. The craniocervical junction is well-maintained. Moderate degenerative changes are seen in the cervical spine with disc osteophyte complexes and uncovertebral arthropathy. Soft tissues of the neck are unremarkable. IMPRESSION: 1. No hemorrhage or focal intra-axial mass. No CT evidence of large acute territorial ischemia. 2. No acute fracture or dislocation in the cervical spine. Dictated by: Dictated on workstation # [id number]
== END 2022-02-13 18:47 | disposition home or self-care (01) ==
LOC: EDUNIT# 17:19 → ER 17:20
DX: S80.01XA Contusion of right knee, initial encounter (principal); Z87.891 Personal history of nicotine dependence; Z96.651 Presence of right artificial knee joint; Z28.310 Unvaccinated for COVID-19; W01.198A Fall on same level from slipping, tripping and stumbling with subsequent striking against other object, initial encounter
CPT/HCPCS: 70450; 72125; 73562